=== PATIENT | female | born 1960 | race Caucasian/White ===

== ENCOUNTER → 2017-02-02 | Outpatient (CLI) | payer OTHER, SELFPAY ==
--- NOTE | 2017-02-02 15:05 | CR ---
EXAMINATION: Left wrist HISTORY: Pain COMPARISON: 03/26/2015 TECHNIQUE: 3 views FINDINGS/IMPRESSION: There is no acute osseous abnormality, dislocation, or fracture identified. The re is moderate positive ulnar variance. Subchondral cystic changes noted within the carpal bones mos t prominent within the hamate.
== END ==
LOC: MW.CHORTHO 07:37
PROVIDERS: ATTEND Physician Assistant
DX: M25.532 Pain in left wrist (principal)
CPT/HCPCS: 73110-26-LT; 73110-LT

== ENCOUNTER 2017-06-15 11:58 | Day surgery (SDC) | payer OTHER, SELFPAY ==
[~2017-06-15 11:58] MED LIST: Betamethasone Acetate/Betamethasone Sod Phosphate 30 MG/5 ML MDV ONE; Lidocaine 2% 5 ML SDV ONE; Ropivacaine 0.5% 5 MG/ML 30 ML SDV ONE
--- NOTE | 2017-06-15 21:47 | OR ---
SURGEON: Ketty Chávez D.O. DATE OF PROCEDURE: 06/15/2017 OR STAFF PRESENT: 1. Nazanin Christian. 2. Elsa Perkins. 3. Yahaira RT. WOUND CLASSIFICATION: I. PREOPERATIVE DIAGNOSES: 1. Chronic low back pain. 2. Lumbar degenerative disk disease. 3. Lumbar radiculopathy. 4. Spinal stenosis. POSTOPERATIVE DIAGNOSES: 1. Chronic low back pain. 2. Lumbar degenerative disk disease. 3. Lumbar radiculopathy. 4. Spinal stenosis. PROCEDURES PERFORMED: 1. Caudal epidural steroid injection. 2. Fluoroscopic guidance for needle placement. 3. Local with oral Valium for sedation. SCREENING QUESTIONS: The patient answered "no" to all of the following questions: 1. Are you allergic to latex? 2. Do you have a bleeding disorder? 3. Do you have any current local or systemic infections? 4. Are you taking any anti-inflammatories or blood thinners? 5. Do you have any joint replacements, heart valve replacements, or a pacemaker? DESCRIPTION OF PROCEDURE: The patient had the procedure thoroughly explained including all possible risks, benefits and alternatives. Consent was signed in my clinic indicating understanding and willingness to proceed. The patient presented to [facility] and was escorted to the dressing room to disrobe and change into a hospital gown. Preoperative vital signs were taken and stable. The patient reported that Valium was taken prior to the procedure. The patient was brought back to the procedure room and placed in the prone position on the procedure room table. A pillow was placed under the hips in order to flatten the lumbar lordosis. The back was prepped with ChloraPrep and sterilely draped. All personnel in the operating room were dressed in appropriate attire including surgical scrubs, head and shoe covers. This was to ensure sterility while in the treatment room. During the time fluoroscopy was in use, all personnel in the operating room wore lead mooney with thyroid collars. Sterile technique was used throughout the procedure. The patient was awake and conversant throughout the procedure. There was no evidence of infection at the site of needle insertion. Skeletal landmarks were identified under fluoroscopy for the caudal epidural. Skin was anesthetized with 2% lidocaine with a sterile 27-gauge 1.5 inch needle. Then a 20-gauge Tuohy epidural needle was placed in the epidural space with loss of resistance technique under fluoroscopic guidance. No heme, cerebrospinal fluid, or paresthesias were noted. Isovue-200 contrast dye was injected in 0.2 cubic centimeter increments and seen to outline the epidural space in both AP and lateral views. There was no intravascular flow pattern observed under live fluoroscopy. Then 12 milligrams of Celestone was slowly injected after negative aspiration. The patient tolerated the procedure well. Vital signs were stable during and after the procedure. The staff escorted the patient to the recovery area and the patient was released in stable condition after a brief stay in the recovery room monitored by the nurse. The patient was given both oral and written discharge and follow up instructions with recommendation to follow up given for 2-3 weeks. The patient voiced understanding including understanding of those signs and symptoms that would require emergency care. The patient knows how to contact the office if there are any additional problems or questions in the meantime. PREOPERATIVE PAIN: 7/10. POSTOPERATIVE PAIN: 0/10. PLAN: Followup in the Pain Clinic in one month. [place] / ROJELIO /[id number] MTDLinda
== END 2017-06-15 13:14 ==
LOC: MW.SDS 11:58
PROVIDERS: ATTEND Anesthesiology
PROC: 3E0S33Z Introduction of Anti-inflammatory into Epidural Space, Percutaneous Approach (ICD-10-PCS; principal; 2017-06-15)
DX: M51.16 Intervertebral disc disorders with radiculopathy, lumbar region (principal); G89.29 Other chronic pain; F32.9 Major depressive disorder, single episode, unspecified; I10 Essential (primary) hypertension; E03.9 Hypothyroidism, unspecified; E66.9 Obesity, unspecified; Z79.82 Long term (current) use of aspirin; Z90.89 Acquired absence of other organs; Z98.890 Other specified postprocedural states; Z87.891 Personal history of nicotine dependence
CPT/HCPCS: 62323; J0702; J2795

== ENCOUNTER 2017-09-24 23:58 | Emergency (ER) | payer OTHER ==
--- NOTE | 2017-09-25 00:20 | EDM.PDOC ---
ED HPI GENERAL MEDICAL PROBLEM - General Chief Complaint: Genitourinary Problem Stated Complaint: POSSIBLE BLADDER INFECTION Time Seen by Provider: 09/25/17 00:04 - History of Present Illness INITIAL COMMENTS - FREE TEXT/NARRATIVE: HISTORY AND PHYSICAL: History of present illness: The patient is a 57-year-old female was a history of hypertension hypothyroidism and chronic back pain for which she follows with Dr. Chávez and presents with frequency urgency some dysuria and some new hematuria in her urine that started today. Patient said she did not see blood in the urine until this evening and she says that she has pain more frequently with smaller amounts. She has her chronic back pain and says it is not radiating down to her legs she has no bowel or bladder disturbances other than the urinary complaints as above. She has no discrete flank pain but has some right lower back pain associated with the urinary issues. She has no fever chills chest pain or shortness of breath and no nausea or vomiting. She says she hasn't had much of an appetite and food makes her somewhat nauseated but she has an address that with her primary and that is not new today. She has no neurosensory changes in her lower extremities and says that the sensation in her buttocks and perianal area is intact. She's been having regular bowel movements. She has no recent trauma to her back or abdomen area and no history. Review of systems: As per history of present illness and below otherwise all systems reviewed and negative. Past medical history: As per history of present illness and as reviewed below otherwise noncontributory. Surgical history: As per history of present illness and as reviewed below otherwise noncontributory. Social history: No reported history of drug or alcohol abuse. Family history: As per history of present illness and as reviewed below otherwise noncontributory. Physical exam: Gen.: Well-developed well-nourished mildly overweight female who is nontoxic and moves easily in the ED without distress. HEENT: Atraumatic, normocephalic, negative for conjunctival pallor or scleral icterus, mucous membranes moist, throat clear, neck supple, nontender, trachea midline. Lungs: Clear to auscultation, breath sounds equal bilaterally, chest nontender. Heart: S1S2, regular rate and rhythm no overt murmurs Abdomen: Soft, nondistended, bowel sounds are hypoactive and there is some mild suprapubic tenderness on deep palpation without rebound or guarding. Negative for masses or hepatosplenomegaly. Negative for costovertebral tenderness. Pelvis: Stable nontender. Genitourinary: Deferred. Rectal: Deferred. Extremities: Atraumatic, negative for cords or calf pain. Neurovascular unremarkable. Neuro: Awake, alert, oriented. Cranial nerves II through XII unremarkable. Cerebellum unremarkable. Motor and sensory unremarkable throughout. Exam nonfocal. Diagnostics: UA urine culture bladder scan pre-and post void Therapeutics: Rocephin IM, Pyridium Please note bladder scan results indicating 245 mL of urine prevoid and 121 mL post void. Impression: UTI/cystitis Definitive disposition and diagnosis as appropriate pending reevaluation and review of above. back & lower abdomen Pain Score (Numeric/FACES): 5 - Related Data Allergies Allergy/AdvReac Type Severity Reaction Status Date / Time No Known Allergies Allergy Verified 09/25/17 00:04 Home Meds: Home Meds Aspirin 1 tab PO ASDIRECTED 09/25/17 [History] Levothyroxine 75 mcg PO ACBREAKFAST 09/25/17 [History] Metoprolol Tartrate 1 tab PO BID 09/25/17 [History] Past Medical History HEENT History: Reports: None Cardiovascular History: Reports: Hypertension Respiratory History: Reports: COPD Gastrointestinal History: Reports: None Genitourinary History: Reports: None PROFILER History: Reports: Musculoskeletal History: Reports: Osteoarthritis Neurological History: Reports: None Psychiatric History: Reports: Anxiety, Depression Endocrine/Metabolic History: Reports: Hypothyroidism Hematologic History: Reports: None Immunologic History: Reports: None Oncologic (Cancer) History: Reports: None Dermatologic History: Reports: None - Infectious Disease History Infectious Disease History: Reports: Chicken Pox - Past Surgical History HEENT Surgical History: Reports: Tonsillectomy Social & Family History - Family History Family Medical History: Noncontributory - Tobacco Use Smoking Status *Q: Former Smoker Years of Tobacco use: 40 Used Tobacco, but Quit: No Tobacco Use Comment: quit a year ago - Caffeine Use Caffeine Use: Reports: Soda - Alcohol Use Days Per Week of Alcohol Use: 0 - Recreational Drug Use Recreational Drug Use: No ED ROS GENERAL - Review of Systems Review Of Systems: ROS reveals no pertinent complaints other than HPI. ED EXAM, GENERAL - Physical Exam Exam: See Below (See dictation) Course - Vital Signs Last Recorded V/S: Last Vital Signs Temp 36.2 C 09/25/17 00:06 Pulse 70 09/25/17 00:06 Resp 18 09/25/17 00:06 BP 106/53 L 09/25/17 00:06 Pulse Ox 96 09/25/17 00:06 - Orders/Labs/Meds Orders: Active Orders 24 hr Category Date Time Status CULTURE URINE [RM] Stat Lab 09/25/17 00:29 Received Labs: Laboratory Tests 09/25/17 Range/Units 00:29 Urine Color BROWN Urine Appearance SLT CLOUDY Urine pH 6.5 (5.0-8.0) Ur Specific [place] >= 1.030 (1.001-1.035) Urine Protein >=300 (NEGATIVE) mg/dL Urine Glucose (UA) 100 H (NEGATIVE) mg/dL Urine Ketones TRACE H (NEGATIVE) mg/dL Urine Occult Blood LARGE H (NEGATIVE) Urine Nitrite POSITIVE H (NEGATIVE) Urine Bilirubin MODERATE H (NEGATIVE) Urine Ictotest NEGATIVE Urine Urobilinogen 1.0 (<2.0) EU/dL Ur Leukocyte Esterase MODERATE (NEGATIVE) Urine RBC TOO NUMBEROUS TO CT H (0-2/HPF) Urine WBC 20-30 (0-5/HPF) Ur Epithelial Cells OCCASIONAL (NONE-FEW) Urine Bacteria 1+ H (NEGATIVE) Meds: Medications Discontinued Medications Generic Name Dose Route Start Last Admin Trade Name Vega PRN Reason Stop Dose Admin Ceftriaxone Sodium 1,000 mg/ 4 mls @ 4 mls/sec 09/25/17 01:00 Lidocaine HCl IM 09/25/17 01:01 ONETIME ONE Phenazopyridine HCl 200 mg 09/25/17 01:00 Pyridium PO 09/25/17 01:01 ONETIME ONE Departure - Departure Time of Disposition: 01:02 Disposition: Home, Self-Care 01 Condition: Good Clinical Impression: UTI, Urinary tract infectious disease - Discharge Information Referrals: Juliana Kramer PELLET MACHINE OPERATOR [Primary Care Provider] - Forms: ED Department Discharge Additional Instructions: The following information is given to patients seen in the emergency department who are being discharged to home. This information is to outline your options for follow-up care. We provide all patients seen in our emergency department with a follow-up referral. The need for follow-up, as well as the timing and circumstances, are variable depending upon the specifics of your emergency department visit. If you don't have a primary care physician on staff, we will provide you with a referral. We always advise you to contact your personal physician following an emergency department visit to inform them of the circumstance of the visit and for follow-up with them and/or the need for any referrals to a consulting specialist. The emergency department will also refer you to a specialist when appropriate. This referral assures that you have the opportunity for followup care with a specialist. All of these measure are taken in an effort to provide you with optimal care, which includes your followup. Under all circumstances we always encourage you to contact your private physician who remains a resource for coordinating your care. When calling for followup care, please make the office aware that this follow-up is from your recent emergency room visit. If for any reason you are refused follow-up, please contact the [facility] emergency department at and ask to speak to the emergency department charge nurse. [facility] Primary care- [place] [address] Please push hydration and take medications as prescribed. Please return to ER as needed and as discussed. Please contact your pain doctor in the clinic, Dr. Chávez, on Wednesday morning to inform her of jane's events as she may or may not want to change her surgery next week. He will be contacted if the urine culture reveals and need for change in antibiotics. Please also call your provider in the clinic for reevaluation and further care of this urine problem next week. - My Orders Last 24 Hours: My Active Orders 09/25/17 00:29 CULTURE URINE [RM] Stat - Assessment/Plan Last 24 Hours: My Active Orders 09/25/17 00:29 CULTURE URINE [RM] Stat
[2017-09-25] MEDS ORDERED: Phenazopyridine 200 MG Tab PO ONE (01:00)
[2017-09-25] MEDS ORDERED: cefTRIAXone 1,000 MG in Lidocaine 1% 4 ML IM ONE (01:00)
[2017-09-25 01:28] VITALS: BP 119/79
== END 2017-09-25 01:31 | disposition home or self-care (01) ==
LOC: MW.ED 23:58
DX: N39.0 Urinary tract infection, site not specified (principal); I10 Essential (primary) hypertension; Z79.82 Long term (current) use of aspirin; Z79.899 Other long term (current) drug therapy; Z87.891 Personal history of nicotine dependence
CPT/HCPCS: 81001; 87086; 96372; 99284; A9270; J0696; 87088; 87186; 99282

== ENCOUNTER 2017-12-23 11:41 | Day surgery (SDC) | payer OTHER ==
[2017-12-23] MEDS ORDERED: Ropivacaine 0.5% 5 MG/ML 30 ML SDV ONE (12:04)
[2017-12-23] MEDS ORDERED: Lidocaine 2% 5 ML SDV ONE (12:04)
[2017-12-23] MEDS ORDERED: Iopamidol 408 MG/ML 50 ML SDV ONE (12:04)
[2017-12-23] MEDS ORDERED: Betamethasone Acetate/Betamethasone Sod Phosphate 30 MG/5 ML MDV ONE (12:04)
--- NOTE | 2017-12-23 16:14 | OR ---
SURGEON: Ketty Chávez D.O. DATE OF PROCEDURE: 12/23/2017 OR STAFF PRESENT: 1. Loraine Shen RN. 2. Mc Perkins RN. 3. RT Agnieszka. WOUND CLASSIFICATION: I. PREOPERATIVE DIAGNOSES: 1. Lumbar degenerative disk disease. 2. Lumbar spinal stenosis. 3. Chronic low back pain. 4. Increased BMI. POSTOPERATIVE DIAGNOSES: 1. Lumbar degenerative disk disease. 2. Lumbar spinal stenosis. 3. Chronic low back pain. 4. Increased BMI. PROCEDURE PERFORMED: 1. Caudal epidural steroid injection. 2. Fluoroscopic guidance for needle placement. 3. Local with oral Valium for sedation. SCREENING QUESTIONS: The patient answered "no" to all of the following questions: 1. Are you allergic to latex? 2. Do you have a bleeding disorder? 3. Do you have any current local or systemic infections? 4. Are you taking any anti-inflammatories or blood thinners? 5. Do you have any joint replacements, heart valve replacements, or a pacemaker? DESCRIPTION OF PROCEDURE: The patient had the procedure thoroughly explained including all possible risks, benefits and alternatives. Consent was signed in my clinic indicating understanding and willingness to proceed. The patient presented to [facility] [place] and was escorted to the dressing room to disrobe and change into a hospital gown. Preoperative vital signs were taken and stable. The patient reported that Valium was taken prior to the procedure. The patient was brought back to the procedure room and placed in the prone position on the procedure room table. A pillow was placed under the hips in order to flatten the lumbar lordosis. The back was prepped with ChloraPrep and sterilely draped. All personnel in the operating room were dressed in appropriate attire including surgical scrubs, head and shoe covers. This was to ensure sterility while in the treatment room. During the time fluoroscopy was in use, all personnel in the operating room wore lead mooney with thyroid collars. Sterile technique was used throughout the procedure. The patient was awake and conversant throughout the procedure. There was no evidence of infection at the site of needle insertion. Skeletal landmarks were identified under fluoroscopy for the caudal epidural. Skin was anesthetized with 2% lidocaine with a sterile 27-gauge 1.5 inch needle. Then a 20-gauge Tuohy epidural needle was placed in the epidural space with loss of resistance technique under fluoroscopic guidance. No heme, cerebrospinal fluid, or paresthesias were noted. Isovue-200 contrast dye was injected in 0.2 cubic centimeter increments and seen to outline the epidural space in both AP and lateral views. There was no intravascular flow pattern observed under live fluoroscopy. Then 12 milligrams of Celestone was slowly injected after negative aspiration and then local 3cc 0.5% ropivicaine. The patient tolerated the procedure well. Vital signs were stable during and after the procedure. The staff escorted the patient to the recovery area and the patient was released in stable condition after a brief stay in the recovery room monitored by the nurse. The patient was given both oral and written discharge and follow up instructions with recommendation to follow up given for 2-3 weeks. The patient voiced understanding including understanding of those signs and symptoms that would require emergency care. The patient knows how to contact the office if there are any additional problems or questions in the meantime. PREOPERATIVE PAIN: 8/10. POSTOPERATIVE PAIN: 2/10. FOLLOWUP: Follow up in Pain Clinic in 3 weeks. [place] / ROJELIO /[id number] [place]
== END 2017-12-23 14:25 | disposition home or self-care (01) ==
LOC: MW.SDS 11:41
PROVIDERS: ATTEND Anesthesiology
DX: G89.4 Chronic pain syndrome (principal); M51.36 Other intervertebral disc degeneration, lumbar region; M48.061 Spinal stenosis, lumbar region without neurogenic claudication; L57.0 Actinic keratosis; R30.0 Dysuria; J44.9 Chronic obstructive pulmonary disease, unspecified; M65.4 Radial styloid tenosynovitis [de Quervain]; F41.8 Other specified anxiety disorders; R73.09 Other abnormal glucose; I10 Essential (primary) hypertension; E03.9 Hypothyroidism, unspecified; M54.17 Radiculopathy, lumbosacral region; E66.9 Obesity, unspecified; R73.03 Prediabetes; M17.0 Bilateral primary osteoarthritis of knee; M46.1 Sacroiliitis, not elsewhere classified; I78.1 Nevus, non-neoplastic; M47.897 Other spondylosis, lumbosacral region; Z79.891 Long term (current) use of opiate analgesic; Z87.891 Personal history of nicotine dependence; Z79.82 Long term (current) use of aspirin; Z79.899 Other long term (current) drug therapy; Z68.42 Body mass index [BMI] 45.0-49.9, adult
CPT/HCPCS: 62323; J0702; J2795; Q9966

== ENCOUNTER 2017-12-29 06:58 | Emergency (ER) | payer OTHER ==
--- NOTE | 2017-12-29 07:17 | EDM.PDOC ---
ED HPI GENERAL MEDICAL PROBLEM - General Chief Complaint: ENT Problem Stated Complaint: SORE THROAT Time Seen by Provider: 12/29/17 07:17 Source of Information: Reports: Patient - History of Present Illness INITIAL COMMENTS - FREE TEXT/NARRATIVE: HISTORY AND PHYSICAL: History of present illness: Patient with history of COPD presents with cough sore throat as well as left flank pain which has all developed over the last 24 hours. Patient does have a coarse nonproductive cough during examination she also has end expiratory wheeze she is supposed to be taking Symbicort which she does have at home but she does not use this medication. She is no longer smoking however she has developed sore throat over the last 24 hours and has a secondary complaint of left flank discomfort she rates one out of 10 No fever nausea vomiting chills sweats no chest pain shortness breath headache dizziness or palpitation no bowel or urine symptoms ] Review of systems: As per history of present illness and below otherwise all systems reviewed and negative. Past medical history: As per history of present illness and as reviewed below otherwise noncontributory. Surgical history: As per history of present illness and as reviewed below otherwise noncontributory. Social history: No reported history of drug or alcohol abuse. Family history: As per history of present illness and as reviewed below otherwise noncontributory. Physical exam: HEENT: Atraumatic, normocephalic, pupils reactive, negative for conjunctival pallor or scleral icterus, mucous membranes moist, throat clear, neck supple, nontender, trachea midline. Lungs: Clear to auscultation, breath sounds equal bilaterally, chest nontender. Heart: S1S2, regular, negative for clicks, rubs, or JVD. Abdomen: Soft, nondistended, nontender. Negative for masses or hepatosplenomegaly. Negative for costovertebral tenderness. Pelvis: Stable nontender. Genitourinary: Deferred. Rectal: Deferred. Extremities: Atraumatic, negative for cords or calf pain. Neurovascular unremarkable. Neuro: Awake, alert, oriented. Cranial nerves II through XII unremarkable. Cerebellum unremarkable. Motor and sensory unremarkable throughout. Exam nonfocal. Diagnostics: [Rapid strep] Influenza Chest 2 views [employer]: [Patient does not tolerate antibiotics well, she states she has had good luck with amoxicillin in the past Amoxicillin 875 by mouth twice a day #20 no refill Diflucan 150 mg by mouth every other day #3no refill] Medrol Dosepak Impression: [Pharyngitis/bronchitis Slight infiltrate on chest x-ray will follow radiology Leukocyte esterase positive culture pending Definitive disposition and diagnosis as appropriate pending reevaluation and review of above. left flank Pain Score (Numeric/FACES): 8 - Related Data Allergies Allergy/AdvReac Type Severity Reaction Status Date / Time No Known Allergies Allergy Verified 12/29/17 07:55 Home Meds: Home Meds Aspirin 1 tab PO ASDIRECTED 09/25/17 [History] Levothyroxine 80 mcg PO ACBREAKFAST 09/25/17 [History] Metoprolol Tartrate 50 mg PO BID 09/25/17 [History] oxyCODONE 10 mg PO DAILY 12/29/17 [History] Past Medical History HEENT History: Reports: None Cardiovascular History: Reports: Hypertension Respiratory History: Reports: COPD Gastrointestinal History: Reports: None Genitourinary History: Reports: None 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: Musculoskeletal History: Reports: Osteoarthritis Neurological History: Reports: None Psychiatric History: Reports: Anxiety, Depression Endocrine/Metabolic History: Reports: Hypothyroidism Hematologic History: Reports: None Immunologic History: Reports: None Oncologic (Cancer) History: Reports: None Dermatologic History: Reports: None - Infectious Disease History Infectious Disease History: Reports: Chicken Pox - Past Surgical History HEENT Surgical History: Reports: Tonsillectomy Social & Family History - Family History Family Medical History: Noncontributory - Tobacco Use Smoking Status *Q: Former Smoker Years of Tobacco use: 40 Used Tobacco, but Quit: No - Caffeine Use Caffeine Use: Reports: Soda - Alcohol Use Days Per Week of Alcohol Use: 0 - Recreational Drug Use Recreational Drug Use: No ED ROS GENERAL - Review of Systems Review Of Systems: ROS reveals no pertinent complaints other than HPI. ED EXAM, GENERAL - Physical Exam Exam: See Below Course - Vital Signs Last Recorded V/S: Last Vital Signs Temp 95.3 F L 12/29/17 07:26 Pulse 91 12/29/17 07:26 Resp 18 12/29/17 07:26 BP 121/67 12/29/17 07:26 Pulse Ox 91 L 12/29/17 07:26 - Orders/Labs/Meds Orders: Active Orders 24 hr Category Date Time Status RT Aerosol Therapy [RC] ASDIRECTED Care 12/29/17 07:28 Active Chest 1V Frontal [CR] Stat Exams 12/29/17 07:28 Taken CULTURE STREP A CONFIRMATION [RM] Stat Lab 12/29/17 07:32 Results CULTURE URINE [RM] Stat Lab 12/29/17 07:32 Received STREP SCRN A RAPID W CULT CONF [RM] Stat Lab 12/29/17 07:32 Results Labs: Laboratory Tests 12/29/17 Range/Units 07:32 Urine Color YELLOW Urine Appearance CLEAR Urine pH 6.0 (5.0-8.0) Ur Specific [place] 1.015 (1.001-1.035) Urine Protein NEGATIVE (NEGATIVE) mg/dL Urine Glucose (UA) NEGATIVE (NEGATIVE) mg/dL Urine Ketones NEGATIVE (NEGATIVE) mg/dL Urine Occult Blood NEGATIVE (NEGATIVE) Urine Nitrite NEGATIVE (NEGATIVE) Urine Bilirubin NEGATIVE (NEGATIVE) Urine Urobilinogen 0.2 (<2.0) EU/dL Ur Leukocyte Esterase TRACE (NEGATIVE) Urine RBC 0-2 (0-2/HPF) Urine WBC 5-10 (0-5/HPF) Ur Epithelial Cells MODERATE (NONE-FEW) Urine Bacteria FEW (NEGATIVE) Meds: Medications Discontinued Medications Generic Name Dose Route Start Last Admin Trade Name Freq PRN Reason Stop Dose Admin Albuterol/Ipratropium 3 ml 12/29/17 07:28 12/29/17 07:44 Duoneb 3.0-0.5 Mg/3 Ml NEB 12/29/17 07:29 3 ml ONETIME ONE Administration Departure - Departure Time of Disposition: 08:19 Disposition: Home, Self-Care 01 Condition: Good Clinical Impression: Pharyngitis, Bronchitis, UTI, Urinary tract infectious disease - Discharge Information Referrals: Juliana Kramer NP [Primary Care Provider] - Forms: ED Department Discharge Additional Instructions: Medications as prescribed Strongly advised to use your Symbicort as directed at home Return if symptoms persist or worsen Follow-up with primary care in 2 weeks sooner as needed The following information is given to patients seen in the emergency department who are being discharged to home. This information is to outline your options for follow-up care. We provide all patients seen in our emergency department with a follow-up referral. The need for follow-up, as well as the timing and circumstances, are variable depending upon the specifics of your emergency department visit. If you don't have a primary care physician on staff, we will provide you with a referral. We always advise you to contact your personal physician following an emergency department visit to inform them of the circumstance of the visit and for follow-up with them and/or the need for any referrals to a consulting specialist. The emergency department will also refer you to a specialist when appropriate. This referral assures that you have the opportunity for follow-up care with a specialist. All of these measure are taken in an effort to provide you with optimal care, which includes your follow-up. Under all circumstances we always encourage you to contact your private physician who remains a resource for coordinating your care. When calling for follow-up care, please make the office aware that this follow-up is from your recent emergency room visit. If for any reason you are refused follow-up, please contact the [facility] emergency department at and asked to speak to the emergency department charge nurse. - My Orders Last 24 Hours: My Active Orders 12/29/17 07:28 RT Aerosol Therapy [RC] ASDIRECTED Chest 1V Frontal [CR] Stat 12/29/17 07:32 CULTURE STREP A CONFIRMATION [RM] Stat CULTURE URINE [RM] Stat STREP SCRN A RAPID W CULT CONF [RM] Stat - Assessment/Plan Last 24 Hours: My Active Orders 12/29/17 07:28 RT Aerosol Therapy [RC] ASDIRECTED Chest 1V Frontal [CR] Stat 18 07:32 CULTURE STREP A CONFIRMATION [RM] Stat CULTURE URINE [RM] Stat STREP SCRN A RAPID W CULT CONF [RM] Stat
[2017-12-29] MEDS ORDERED: Albuterol/Ipratropium 3.0-0.5 MG/3 ML Neb Soln NEB ONE (07:28)
--- NOTE | 2017-12-29 11:13 | CR ---
EXAM DATE: 12/29/17 PATIENT'S AGE: 57 Patient: MEG QUINTERO Facility: [place], [place] Site . Site : 1960 Study: XRay Chest [id number]/14/2018 7:58:42 AM Ordering Physician: Jacki Thomas Final Report: INDICATION: Pain. Shortness of breath. TECHNIQUE: PA chest. COMPARISON: None. FINDINGS: The cardiac, mediastinal and hilar contours are within normal limits. Normal pulmonary vasculature. There is atelectasis versus scarring see in the mid left lung. No airspace opacities to suggest pneumonia. No appreciable pleural fluid or pneumothorax. IMPRESSIONS: Minimal left perihilar atelectasis versus scarring. No other significant findings. Dictated by Zach Spears MD @ 12/29/2017 8:19:45 AM Dictated by: Zach Spears MD @ 12/29/2017 08:19:52 (Electronic Signature) Report Signed by Proxy. PEYTON
[2017-12-29 14:22] VITALS: BP 119/75
== END 2017-12-29 08:30 | disposition home or self-care (01) ==
LOC: MW.ED 06:58
DX: J40 Bronchitis, not specified as acute or chronic (principal); J02.9 Acute pharyngitis, unspecified; N39.0 Urinary tract infection, site not specified; J44.9 Chronic obstructive pulmonary disease, unspecified; Z79.899 Other long term (current) drug therapy; Z87.891 Personal history of nicotine dependence
CPT/HCPCS: 71045; 71045-26; 81001; 87081; 87086; 87804; 87880; 94640; 99283; 99284-25

== ENCOUNTER 2018-07-10 17:40 | Emergency (ER) | payer SELFPAY ==
--- NOTE | 2018-07-10 18:00 | EDM.PDOC ---
ED HPI GENERAL MEDICAL PROBLEM - General Chief Complaint: Back Pain or Injury Stated Complaint: PT HAS LOWER BODY PAIN Time Seen by Provider: 07/10/18 17:47 - History of Present Illness INITIAL COMMENTS - FREE TEXT/NARRATIVE: HISTORY AND PHYSICAL: History of present illness: Patient's a 57-year-old white female with history of chronic back pain seems a private medical doctor and a pain specialist who comes in now with lower back pain with radiation to her right hip and anterior thigh she denies any trauma and she denies numbness weakness incontinence or retention of bowel or bladder. Review of systems: As per history of present illness and below otherwise all systems reviewed and negative. Past medical history: As per history of present illness and as reviewed below otherwise noncontributory. Surgical history: As per history of present illness and as reviewed below otherwise noncontributory. Social history: No reported history of drug or alcohol abuse. Family history: As per history of present illness and as reviewed below otherwise noncontributory. Physical exam: HEENT: Atraumatic, normocephalic, pupils reactive, negative for conjunctival pallor or scleral icterus, mucous membranes moist, throat clear, neck supple, nontender, trachea midline. Lungs: Clear to auscultation, breath sounds equal bilaterally, chest nontender. Heart: S1S2, regular, negative for clicks, rubs, or JVD. Abdomen: Soft, nondistended, nontender. Negative for masses or hepatosplenomegaly. Negative for costovertebral tenderness. Pelvis: Stable nontender. Genitourinary: Deferred. Rectal: Deferred. Extremities: Atraumatic, negative for cords or calf pain. Neurovascular unremarkable. Neuro: Awake, alert, oriented. Cranial nerves II through XII unremarkable. Cerebellum unremarkable. . Exam nonfocal. Back: Patient is no vertebral body or point tenderness no significant spasm motor and sensory are limited but grossly unremarkable Diagnostics: CT lumbar spine Therapeutics: None Impression: #1 chronic pain syndrome Definitive disposition and diagnosis as appropriate pending reevaluation and review of above. Right Lower Back Pain Score (Numeric/FACES): 10 - Related Data Allergies Allergy/AdvReac Type Severity Reaction Status Date / Time No Known Allergies Allergy Verified 12/29/17 07:55 Home Meds: Home Meds Aspirin 1 tab PO ASDIRECTED 09/25/17 [History] Levothyroxine 80 mcg PO ACBREAKFAST 09/25/17 [History] Metoprolol Tartrate 50 mg PO BID 09/25/17 [History] oxyCODONE 10 mg PO BID 12/29/17 [History] Past Medical History HEENT History: Reports: None Cardiovascular History: Reports: Hypertension Respiratory History: Reports: COPD Gastrointestinal History: Reports: None Genitourinary History: Reports: None 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: Musculoskeletal History: Reports: Osteoarthritis Neurological History: Reports: None Psychiatric History: Reports: Anxiety, Depression Endocrine/Metabolic History: Reports: Hypothyroidism Hematologic History: Reports: None Immunologic History: Reports: None Oncologic (Cancer) History: Reports: None Dermatologic History: Reports: None - Infectious Disease History Infectious Disease History: Reports: Chicken Pox - Past Surgical History HEENT Surgical History: Reports: Tonsillectomy Social & Family History - Family History Family Medical History: Noncontributory - Caffeine Use Caffeine Use: Reports: Soda ED ROS GENERAL - Review of Systems Review Of Systems: ROS reveals no pertinent complaints other than HPI. ED EXAM, GENERAL - Physical Exam Exam: See Below (See dictation) Course - Vital Signs Last Recorded V/S: Last Vital Signs Temp 36.2 C 07/10/18 17:49 Pulse 54 L 07/10/18 17:49 Resp 20 07/10/18 17:49 BP 114/61 07/10/18 17:49 Pulse Ox 97 07/10/18 17:49 - Orders/Labs/Meds Orders: Active Orders 24 hr Category Date Time Status Lumbar Spine wo Cont [CT] Stat Exams 07/10/18 17:58 Taken Departure - Departure Time of Disposition: 18:48 Disposition: Home, Self-Care 01 Condition: Good Clinical Impression: Chronic pain syndrome, Degenerative disc disease - Discharge Information *PRESCRIPTION DRUG MONITORING PROGRAM REVIEWED*: Not Applicable *COPY OF PRESCRIPTION DRUG MONITORING REPORT IN PATIENT KATHIE: Not Applicable Referrals: PCP,None [Primary Care Provider] - Forms: ED Department Discharge Additional Instructions: The following information is given to patients seen in the emergency department who are being discharged to home. This information is to outline your options for follow-up care. We provide all patients seen in our emergency department with a follow-up referral. The need for follow-up, as well as the timing and circumstances, are variable depending upon the specifics of your emergency department visit. If you don't have a primary care physician on staff, we will provide you with a referral. We always advise you to contact your personal physician following an emergency department visit to inform them of the circumstance of the visit and for follow-up with them and/or the need for any referrals to a consulting specialist. The emergency department will also refer you to a specialist when appropriate. This referral assures that you have the opportunity for followup care with a specialist. All of these measure are taken in an effort to provide you with optimal care, which includes your followup. Under all circumstances we always encourage you to contact your private physician who remains a resource for coordinating your care. When calling for followup care, please make the office aware that this follow-up is from your recent emergency room visit. If for any reason you are refused follow-up, please contact the [facility] emergency department at and asked to speak to the emergency department charge nurse. Follow-up primary medical doctor and pain specialist as discussed return as needed as discussed - My Orders Last 24 Hours: My Active Orders 07/10/18 17:58 Lumbar Spine wo Cont [CT] Stat - Assessment/Plan Last 24 Hours: My Active Orders 07/10/18 17:58 Lumbar Spine wo Cont [CT] Stat
[2018-07-10] MEDS ORDERED: Ketorolac 60 MG/2 ML SDV IM ONE (19:24)
[2018-07-10 19:48] VITALS: BP 122/68
--- NOTE | 2018-07-11 16:14 | CT ---
EXAM DATE: 07/10/18 PATIENT'S AGE: 57 Patient: MEG QUINTERO Facility: [place], [place] Site . Site : 1960 Study: CT Spine Lumbar [id number]/23/2018 6:28:11 PM Ordering Physician: Maggy Gandhi Final Report: Indication: Low back pain radiating down the legs for 3 days. Technique: Multiple contiguous axial images were obtained through the lumbar spine. Sagittal and coronal reformatted images were performed. Please note that all CT scans at this facility use dose modulation, iterative reconstruction, and/or weight-based dosing when appropriate to reduce radiation dose to as low as reasonably achievable. Comparison: None Findings: The alignment of the lumbar spine is within normal limits. The vertebral body heights are well maintained. Vacuum disc phenomenon is identified at L5-S1. Intervertebral disc space narrowing is identified at L5-S1. Vacuum disc phenomenon is identified within both the right and left SI joint as well as the left L4-L5 and L5-S1 facet joints. At L4-L5, mild central canal stenosis appears to be present due to facet joint arthropathy and ligamentum flavum redundancy. There is possible compression of the exiting nerve roots at this level. At L5-S1, mild to moderate central canal stenosis is identified due to ligamentum flavum hypertrophy and a small posterior disc bulge. Facet joint arthropathy does appear to cause nerve root compression bilaterally. Impression: Degenerative change particularly in the lower lumbar spine. This patient would benefit from an MRI for further characterization and analysis on a non emergent basis. No acute fracture identified. Please note that all CT scans at this facility use dose modulation, iterative reconstruction, and/or weight-based dosing when appropriate to reduce radiation dose to as low as reasonably achievable. Dictated by Gloria Donald MD @ Jul 10 2018 6:50PM (Electronic Signature) Report Signed by Proxy. PEYTON
== END 2018-07-10 19:45 | disposition home or self-care (01) ==
LOC: MW.ED 17:40
DX: M51.36 Other intervertebral disc degeneration, lumbar region (principal); G89.4 Chronic pain syndrome; I10 Essential (primary) hypertension
CPT/HCPCS: 72131; 96372; 99284; J1885

== ENCOUNTER 2019-04-27 10:56 | Day surgery (SDC) | payer OTHER ==
[2019-04-27] MEDS ORDERED: Ropivacaine 0.5% 5 MG/ML 30 ML SDV ONE (11:37)
[2019-04-27] MEDS ORDERED: Lidocaine 2% 5 ML SDV ONE (11:37)
[2019-04-27] MEDS ORDERED: Betamethasone Acetate/Betamethasone Sod Phosphate 30 MG/5 ML MDV ONE (11:37)
[2019-04-27] MEDS ORDERED: Iopamidol 200-M 10 ML vial ITHECAL ONE (11:38)
--- NOTE | 2019-04-27 21:05 | OR ---
SURGEON: Ketty Chávez D.O. DATE OF PROCEDURE: 04/27/2019 PRIMARY SURGEON: Ketty Chávez D.O. ASSISTANTS: OR staff present are RT Justyn; Ta Burton RN; and Bear Winter RN. WOUND CLASS: I. PREOPERATIVE DIAGNOSES: 1. Lumbar degenerative disk disease. 2. Lumbar spondylosis. 3. Lumbar transitional vertebrae, L5-S1. 4. Lumbar sacralization. 5. Chronic low back pain. POSTOPERATIVE DIAGNOSES: 1. Lumbar degenerative disk disease. 2. Lumbar spondylosis. 3. Lumbar transitional vertebrae, L5-S1. 4. Lumbar sacralization. 5. Chronic low back pain. PROCEDURES PERFORMED: 1. Caudal epidural steroid injection. 2. Fluoroscopic guidance for needle placement. 3. Local with oral Valium for sedation. PREOPERATIVE PAIN: 10/10. POSTOPERATIVE PAIN: 4/10. FOLLOWUP: In the Pain Clinic in 1 month. SCREENING QUESTIONS: The patient answered "no" to all of the following questions: 1. Are you allergic to latex? 2. Do you have a bleeding disorder? 3. Do you have any current local or systemic infections? 4. Are you taking any anti-inflammatories or blood thinners? 5. Do you have any joint replacements, heart valve replacements, or a pacemaker? DESCRIPTION OF PROCEDURE: The patient had the procedure thoroughly explained including all possible risks, benefits and alternatives. Consent was signed in my clinic indicating understanding and willingness to proceed. The patient presented to [facility] and was escorted to the dressing room to disrobe and change into a hospital gown. Preoperative vital signs were taken and stable. The patient reported that Valium was taken prior to the procedure. The patient was brought back to the procedure room and placed in the prone position on the procedure room table. A pillow was placed under the hips in order to flatten the lumbar lordosis. The back was prepped with ChloraPrep and sterilely draped. All personnel in the operating room were dressed in appropriate attire including surgical scrubs, head and shoe covers. This was to ensure sterility while in the treatment room. During the time fluoroscopy was in use, all personnel in the operating room wore lead mooney with thyroid collars. Sterile technique was used throughout the procedure. The patient was awake and conversant throughout the procedure. There was no evidence of infection at the site of needle insertion. Skeletal landmarks were identified under fluoroscopy for the caudal epidural. Skin was anesthetized with 2% lidocaine with a sterile 27-gauge 1.5 inch needle. Then a 20-gauge Tuohy epidural needle was placed in the epidural space with loss of resistance technique under fluoroscopic guidance. No heme, cerebrospinal fluid, or paresthesias were noted. Isovue-200 contrast dye was injected in 0.2 cubic centimeter increments and seen to outline the epidural space in both AP and lateral views. There was no intravascular flow pattern observed under live fluoroscopy. Then 12 milligrams of Celestone was slowly injected after negative aspiration. The patient tolerated the procedure well. Vital signs were stable during and after the procedure. The staff escorted the patient to the recovery area and the patient was released in stable condition after a brief stay in the recovery room monitored by the nurse. The patient was given both oral and written discharge and follow up instructions with recommendation to follow up given for 2-3 weeks. The patient voiced understanding including understanding of those signs and symptoms that would require emergency care. The patient knows how to contact the office if there are any additional problems or questions in the meantime. [place] / ROJELIO /[id number] PEYTON
== END 2019-04-27 15:45 ==
LOC: MW.SDS 10:56
PROVIDERS: ATTEND Anesthesiology
DX: M51.36 Other intervertebral disc degeneration, lumbar region (principal); M47.896 Other spondylosis, lumbar region; Q76.49 Other congenital malformations of spine, not associated with scoliosis; M47.27 Other spondylosis with radiculopathy, lumbosacral region; M48.07 Spinal stenosis, lumbosacral region; G89.29 Other chronic pain; J44.9 Chronic obstructive pulmonary disease, unspecified; F41.8 Other specified anxiety disorders; I10 Essential (primary) hypertension; E03.9 Hypothyroidism, unspecified; E66.01 Morbid (severe) obesity due to excess calories; Z79.82 Long term (current) use of aspirin; Z79.899 Other long term (current) drug therapy; Z87.891 Personal history of nicotine dependence; Z68.41 Body mass index [BMI] 40.0-44.9, adult
CPT/HCPCS: 62323; J0702; J2795; Q9966; J2001

== ENCOUNTER 2019-06-15 11:34 | Day surgery (SDC) | payer OTHER ==
[~2019-06-15 11:34] MED LIST changes: +Betamethasone Acetate/Betamethasone Sod Phosphate 30 MG/5 ML MDV EPIDUR ONE; -Betamethasone Acetate/Betamethasone Sod Phosphate 30 MG/5 ML MDV ONE; +Iopamidol 200-M 10 ML vial ITHECAL ONE; +Lidocaine 2% 5 ML SDV INJECT ONE; -Lidocaine 2% 5 ML SDV ONE; +Ropivacaine 0.5% 5 MG/ML 30 ML SDV INJECT ONE; -Ropivacaine 0.5% 5 MG/ML 30 ML SDV ONE
--- NOTE | 2019-06-15 21:19 | OR ---
SURGEON: Ketty Chávez D.O. DATE OF PROCEDURE: 06/15/2019 PRIMARY SURGEON: Ketty Chávez D.O. ASSISTANTS: OR staff present: 1. Pancho Rojas RT. 2. Bear Christian RN. 3. Loraine Wu RN. PREOPERATIVE DIAGNOSES: 1. Lumbar degenerative disk disease. 2. Lumbar facet arthropathy. 3. Lumbar spinal stenosis. 4. Chronic low back pain. POSTOPERATIVE DIAGNOSES: 1. Lumbar degenerative disk disease. 2. Lumbar facet arthropathy. 3. Lumbar spinal stenosis. 4. Chronic low back pain. PROCEDURES PERFORMED: 1. Bilateral L2, L3, L4, L5 diagnostic and therapeutic medial branch blocks. 2. Fluoroscopic guidance for needle placement. 3. Local with oral Valium for sedation. PREOPERATIVE PAIN: 07/27. POSTOPERATIVE PAIN: 1-11/27. FOLLOWUP: In the Pain Clinic in 3 weeks. SCREENING QUESTIONS: The patient answered "No" to all the following questions: 1. Are you allergic to iodine, Betadine or latex? 2. Do you have a bleeding disorder? 3. Are you on anti-inflammatories or blood thinners? 4. Do you have any current local or systemic infections? MEDICAL NECESSITY: This is a patient with chronic low back pain who comes in for the above diagnostic procedure. This procedure is being performed in accordance with national guidelines written by the [employer]; please see medical necessity note in chart. DESCRIPTION OF PROCEDURE: The patient had the procedure thoroughly explained including risks, benefits and alternatives. Consent was signed in my clinic indicating understanding and willingness to proceed. The patient presented to [facility] and was escorted to the dressing room to disrobe and change into a hospital gown. Preoperative history and screening were performed by my nurse. Vital signs were taken and stable. The patient reported that Valium 10 milligrams was taken prior to the procedure. The patient was brought back to the procedure room and placed in the prone position on the procedure room table. A pillow was placed under the abdomen in order to flatten the lumbar lordosis. The back was prepped with ChloraPrep and sterilely draped. All personnel in the procedure room were dressed in appropriate attire including surgical scrubs, head and shoe covers. This was to ensure sterility while in the treatment room. During the time fluoroscopy was in use all personnel in the operating room wore lead mooney with thyroid collars. Sterile technique was used during the procedure. Then the fluoroscope was positioned to provide a right oblique view for the right L2,L3, and L4 medial branch blocks. This was begun by anesthetizing the skin and soft tissues. The fluoroscope was positioned and a sterile 22-gauge 3.5 inch needle was placed at the junction of the transverse process in the superior articular process of the L3, L4 and L5 vertebral bodies respectively. Precise needle placement was confirmed by fluoroscopy. Then 0.2 cubic centimeters of IsoVue-200 contrast dye was injected through microbore tubing under live fluoroscopy and showed no intravascular flow pattern and adequate flow over the target medial branch at each site. After negative aspiration, 1.0 cubic centimeters of celestone and 0.5% Ropivacaine was injected without complications. The fluoroscope was then positioned to provide a right L5 dorsal ramus block. This was begun by anesthetizing the skin and soft tissues over the right sacral sulcus. Then using fluoroscopic guidance, a sterile 22-gauge 3.5 inch spinal needle was positioned at the right sacral ala. Precise needle placement was confirmed by fluoroscopy in AP and oblique views, and 0.2 cubic centimeters of IsoVue-200 contrast dye was injected through microbore tubing under live fluoroscopy and showed no intravascular flow pattern and adequate flow over the target nerves. After negative aspiration, 0.5 cubic centimeters of 0.5% Ropivacaine was injected. No complications were noted. The fluoroscope was positioned then to provide a left L2, L3, and L4 medial branch blocks. The skin was anesthetized. Then a 22-gauge 3.5 inch spinal needle was positioned at the junction of the transverse process in the superior articular process of the L3, L4 andL5 vertebral body on the left . Precise needle placement was confirmed by fluoroscopy and with 0.2 cubic centimeters of IsoVue-200 contrast dye injected through microbore tubing showing no intravascular flow pattern and adequate flow over the target medial branch respectively. Then 1.0 cubic centimeters of celestone and 0.5% Ropivacaine was injected after negative aspiration without complications. Then the fluoroscope was positioned for the left L5 dorsal ramus block. This was begun by anesthetizing the skin and soft tissues. Then with fluoroscopic guidance a sterile 22-gauge 3.5 inch spinal needle was positioned at the left sacral ala. Precise needle placement was confirmed with 0.2 cubic centimeters of IsoVue-200 contrast dye injected through microbore tubing under live fluoroscopy showing no intravascular flow pattern and adequate flow over the target L5 nerve. Then 1.0 cubic centimeters of celestone and 0.5% Ropivacaine was injected after negative aspiration without complications. The procedure was well tolerated and vital signs were stable during and after the procedure. The staff escorted the patient to the recovery area. The patient was given both oral and written discharge and followup instructions. The patient will follow up with a pain diary which will be evaluated over this evening doing things that would normally cause pain. We will evaluate the efficacy of the diagnostic lumbar medial branch blocks as the patient will follow up in the clinic the next day. The patient was given both oral and written discharge and followup instructions. The patient voiced understanding including understanding of those signs and symptoms that would require emergency care and knows how to contact the office if there are any questions or concerns in the meantime. [place]IN / ROJELIO /[id number] PEYTON
== END 2019-06-15 13:30 | disposition home or self-care (01) ==
LOC: MW.SDS 11:34
PROVIDERS: ATTEND Anesthesiology
DX: G89.29 Other chronic pain (principal); M54.5 Low back pain; M51.36 Other intervertebral disc degeneration, lumbar region; M46.96 Unspecified inflammatory spondylopathy, lumbar region; M48.061 Spinal stenosis, lumbar region without neurogenic claudication; J44.9 Chronic obstructive pulmonary disease, unspecified; F32.9 Major depressive disorder, single episode, unspecified; I10 Essential (primary) hypertension; E03.9 Hypothyroidism, unspecified; M17.11 Unilateral primary osteoarthritis, right knee; E66.01 Morbid (severe) obesity due to excess calories; Z68.42 Body mass index [BMI] 45.0-49.9, adult; Z79.82 Long term (current) use of aspirin; Z79.899 Other long term (current) drug therapy; Z87.891 Personal history of nicotine dependence; Z79.891 Long term (current) use of opiate analgesic
CPT/HCPCS: 64493; 64494; 64495; J0702; 64450

== ENCOUNTER 2021-03-04 12:20 | Inpatient (IN) | payer SELFPAY ==
[2021-03-04] MEDS ORDERED: Aspirin 81 MG Tab.Chew PO ONE (13:57)
[2021-03-04 14:37] LABS: BLOOD UREA NITROGEN,BUN 18 mg/dL (7.0-18.0); CARBON DIOXIDE,CO2 30.4 mmol/L (21.0-32.0); CHLORIDE,CL 100 mmol/L (98-107); GLUCOSE RANDOM 126 mg/dL (74-106); POTASSIUM,K 3.8 mmol/L (3.5-5.1); SODIUM,NA 138 mmol/L (136-145)
--- NOTE | 2021-03-04 14:47 | CR ---
CHEST 1 VIEW AP INDICATION: Shortness of breath IMPRESSION: Lordotic view. Normal heart size and vascular pattern. Lungs are clear of focal opacities. No pneumothorax or pleural abnormality. Dictated by Kip Giordano MD @ 03/04/2021 2:46:[address] Kip Giordano @ Mar 04 2021 2:46PM
[2021-03-04] MEDS ORDERED: Ketorolac 15 MG/ML SDV IVPUSH ONE (14:52)
[2021-03-04] MEDS ORDERED: REMDESIVIR 200 MG in Sodium Chloride 0.9% 250 ML IV ONE ×2 (15:00→15:15)
[2021-03-04] MEDS ORDERED: Dexamethasone 4 MG Tab PO ONE (15:01)
--- NOTE | 2021-03-04 15:34 | PCM.HP.2 ---
H&P History of Present Illness - General Date of Service: 03/04/21 Admit Problem/Dx: Admission Diagnosis/Problem Admission Diagnosis/Problem acute hypoxic respiratory failure, COVID-19 Source of Information: Patient History Limitations: Reports: No Limitations - History of Present Illness Initial Comments - Free Text/Narative: This 60-year-old female with past medical history of COPD, hypertension, hypothyroidism anxiety and depression presented to the ER with complaints of fevers chills diarrhea and headache. Patient reports that she started feeling ill with headache fevers and chills approximately 3 to 4 days ago. She reports that after that the headache continued to worsen and has not been relieved with medications at home. She also reports that nausea vomiting and diarrhea started 2 days ago and the diarrhea has been nonstop having 1 incontinent episode this morning. She reports that she otherwise does not leave the house but does state that about 1 week ago or so she went to the bar with her grandson. She reports she has not been vaccinated for COVID-19 at this time. She denies any chest pain but does report shortness of breath especially with any exertion. She reports productive cough with clear mucus. Denies any hemoptysis. Reports mild abdominal tenderness diffusely with diarrhea and nausea and vomiting. She denies any black or bloody bowel movements. She denies any history of CAD or diabetes. She denies any tobacco use, alcohol use. She reports she does intermittently smoke marijuana but has not done so in many months. In the ER no leukocytosis noted hemoglobin 13.3 hematocrit 40.5 platelet count 139,000. Sodium 138 potassium 3.8. BUN 18 creatinine 1.2 glucose 126. AST ALT total bilirubin within normal limits troponin negative she was found to be Covid positive. Chest x-ray negative. Vital signs on arrival reveal temperature 98.6 pulse rate 69 blood pressure 132/63 respiratory rate 20 but noted to be hypoxic at 85% on room air. In the ER she was started on dexamethasone 6 mg p.o. daily along with loading dose of remdesivir 200 mg IV x1. She was also given aspirin 324 mg along with Toradol 15 mg IV push for headache. She will be admitted inpatient for acute hypoxic respiratory failure secondary to COVID-19. headache Pain Score (Numeric/FACES): 10 - Related Data Allergies/Adverse Reactions: Allergies Allergy/AdvReac Type Severity Reaction Status Date / Time No Known Allergies Allergy Verified 03/04/21 12:43 Home Medications: Home Meds Aspirin 1 tab PO DAILY 09/25/17 [History] Levothyroxine 80 mcg PO ACBREAKFAST 09/25/17 [History] oxyCODONE 10 mg PO Q6H PRN 12/29/17 [History] Acetaminophen [Tylenol Extra Strength] 2 tab PO Q4H PRN 03/04/21 [History] Metoprolol Succinate 50 mg PO DAILY 03/04/21 [History] Multivitamin [One Daily Essential] 1 tab PO DAILY 03/04/21 [History] Past Medical History HEENT History: Reports: None Cardiovascular History: Reports: Hypertension. Denies: Afib, Blood Clots/VTE/DVT, CAD, IN Respiratory History: Reports: COPD. Denies: Sleep Apnea Gastrointestinal History: Reports: None. Denies: GERD Genitourinary History: Reports: None. 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: Musculoskeletal History: Reports: Osteoarthritis, Other (See Below) (chronic pain on narcotics) Neurological History: Reports: None Psychiatric History: Reports: Anxiety, Depression Endocrine/Metabolic History: Reports: Hypothyroidism, Obesity/BMI 30+ Hematologic History: Reports: None Immunologic History: Reports: None Oncologic (Cancer) History: Reports: None Dermatologic History: Reports: None - Infectious Disease History Infectious Disease History: Reports: Chicken Pox - Past Surgical History HEENT Surgical History: Reports: Tonsillectomy Social & Family History - Family History Family Medical History: No Pertinent Family History - Tobacco Use Tobacco Use Status *Q: Never Tobacco User - Caffeine Use Caffeine Use: Reports: Soda - Alcohol Use Alcohol Use History: No - Recreational Drug Use Recreational Drug Use: Yes Drug Use in Last 12 Months: Yes Recreational Drug Type: Reports: Marijuana/Hashish Recreational Drug Use Frequency: Monthly - Living Situation & Occupation Living situation: Reports: with Family H&P Review of Systems - Review of Systems: Review Of Systems: See Below General: Reports: Fever, Chills, Malaise, Weakness, Fatigue HEENT: Reports: Headaches (all over throbbing), Sore Throat. Denies: Sinus Congestion, Vertigo, Visual Changes Pulmonary: Reports: Shortness of Breath, Cough, Sputum. Denies: Wheezing, Pleuritic Chest Pain, Hemoptysis Cardiovascular: Reports: Dyspnea on Exertion. Denies: Chest Pain, Palpitations, Edema, Lightheadedness, Syncope Gastrointestinal: Reports: Abdominal Pain (diffuse tenderness,), Diarrhea, Decreased Appetite, Nausea, Vomiting. Denies: Black Stool, Bloody Stool Genitourinary: Reports: No Symptoms. Denies: Dysuria, Frequency, Burning Musculoskeletal: Reports: No Symptoms Skin: Reports: No Symptoms Psychiatric: Reports: No Symptoms Neurological: Reports: No Symptoms Hematologic/Lymphatic: Reports: No Symptoms Immunologic: Reports: No Symptoms Exam - Exam Exam: See Below - Vital Signs Vital Signs: Last Vital Signs Temp 98.6 F 03/04/21 12:39 Pulse 69 03/04/21 12:39 Resp 20 03/04/21 12:39 BP 132/63 03/04/21 12:39 Pulse Ox 95 03/04/21 13:52 Weight: 117.934 kg - Exam Quality Assessment: Supplemental Oxygen, DVT Prophylaxis General: Alert, Oriented, Cooperative, Mild Distress (having headache, eyes cov ered with cool washcloth at times clutching head in pain.) HEENT: Mucosa Moist & Ashmore, Posterior Pharynx Clear Lungs: Normal Respiratory Effort, Decreased Breath Sounds (bibasilar). No: Crackles Cardiovascular: Regular Rate, Regular Rhythm GI/Abdominal Exam: Normal Bowel Sounds, Soft, Tender (slightly tender diffusely, no overt pain) Extremities: Normal Inspection, Normal Range of Motion, Non-Tender, No Pedal Edema Neuro Extensive - Mental Status: Alert, Oriented x3 Neuro Extensive - Motor, Sensory, Reflexes: CN II-XII Intact Psychiatric: Alert, Normal Affect, Normal Mood - Patient Data Lab Results Last 24 hrs: Laboratory Results - last 24 hr 03/04/21 03/04/21 03/04/21 Range/Units 13:44 13:44 13:44 WBC 4.36 (4.0-11.0) K/uL RBC 3.99 L (4.30-5.90) M/uL Hgb 13.3 (12.0-16.0) g/dL Hct 40.5 (36.0-46.0) % MCV 101.5 H (80.0-98.0) fL MCH 33.3 H (27.0-32.0) pg MCHC 32.8 (31.0-37.0) g/dL RDW Std Deviation 52.7 (28.0-62.0) fl RDW Coeff of Juju 14 (11.0-15.0) % Plt Count 139 L (150-400) K/uL MPV 11.00 (7.40-12.00) fL Neut % (Auto) 76.3 (48.0-80.0) % Lymph % (Auto) 17.7 (16.0-40.0) % Vigo % (Auto) 5.5 (0.0-15.0) % Eos % (Auto) 0.0 (0.0-7.0) % Baso % (Auto) 0.5 (0.0-1.5) % Neut # (Auto) 3.3 (1.4-5.7) K/uL Lymph # (Auto) 0.8 (0.6-2.4) K/uL Vigo # (Auto) 0.2 (0.0-0.8) K/uL Eos # (Auto) 0.0 (0.0-0.7) K/uL Baso # (Auto) 0.0 (0.0-0.1) K/uL Nucleated RBC % 0.0 /100WBC Nucleated RBCs # 0 K/uL Sodium 138 (136-145) mmol/L Potassium 3.8 (3.5-5.1) mmol/L Chloride 100 (98-107) mmol/L Carbon Dioxide 30.4 (21.0-32.0) mmol/L BUN 18 (7.0-18.0) mg/dL Creatinine 1.2 H (0.6-1.0) mg/dL Est Cr Clr Drug Dosing 36.26 mL/min Estimated GFR (MDRD) 46.0 ml/min Glucose 126 H (74-106) mg/dL Calcium 8.5 (8.5-10.1) mg/dL Total Bilirubin 0.4 (0.2-1.0) mg/dL Direct Bilirubin (0.0-0.5) mg/dL AST 29 (15-37) IU/L ALT 32 (14-63) IU/L Alkaline Phosphatase 74 (46-116) U/L Troponin I < 0.050 (0.000-0.056) ng/mL B-Natriuretic Peptide 29 (<100) PG/ML Total Protein 7.2 (6.4-8.2) g/dL Albumin 3.4 (3.4-5.0) g/dL Globulin 3.8 (2.6-4.0) g/dL Albumin/Globulin Ratio 0.9 (0.9-1.6) SARS-CoV-2 RNA (VALARIE) (NEGATIVE) 03/04/21 03/04/21 Range/Units 13:44 14:00 WBC (4.0-11.0) K/uL RBC (4.30-5.90) M/uL Hgb (12.0-16.0) g/dL Hct (36.0-46.0) % MCV (80.0-98.0) fL MCH (27.0-32.0) pg MCHC (31.0-37.0) g/dL RDW Std Deviation (28.0-62.0) fl RDW Coeff of Juju (11.0-15.0) % Plt Count (150-400) K/uL MPV (7.40-12.00) fL Neut % (Auto) (48.0-80.0) % Lymph % (Auto) (16.0-40.0) % Vigo % (Auto) (0.0-15.0) % Eos % (Auto) (0.0-7.0) % Baso % (Auto) (0.0-1.5) % Neut # (Auto) (1.4-5.7) K/uL Lymph # (Auto) (0.6-2.4) K/uL Vigo # (Auto) (0.0-0.8) K/uL Eos # (Auto) (0.0-0.7) K/uL Baso # (Auto) (0.0-0.1) K/uL Nucleated RBC % /100WBC Nucleated RBCs # K/uL Sodium (136-145) mmol/L Potassium (3.5-5.1) mmol/L Chloride (98-107) mmol/L Carbon Dioxide (21.0-32.0) mmol/L BUN (7.0-18.0) mg/dL Creatinine (0.6-1.0) mg/dL Est Cr Clr Drug Dosing mL/min Estimated GFR (MDRD) ml/min Glucose (74-106) mg/dL Calcium (8.5-10.1) mg/dL Total Bilirubin (0.2-1.0) mg/dL Direct Bilirubin 0.10 (0.0-0.5) mg/dL AST (15-37) IU/L ALT (14-63) IU/L Alkaline Phosphatase (46-116) U/L Troponin I (0.000-0.056) ng/mL B-Natriuretic Peptide (<100) PG/ML Total Protein (6.4-8.2) g/dL Albumin (3.4-5.0) g/dL Globulin (2.6-4.0) g/dL Albumin/Globulin Ratio (0.9-1.6) SARS-CoV-2 RNA (VALARIE) POSITIVE H (NEGATIVE) Result Diagrams: 03/04/21 13:44 03/04/21 13:44 Sepsis Event Note - Evaluation Sepsis Screening Result: No Definite Risk - Focused Exam Vital Signs: Vital Signs Temp Pulse Resp BP Pulse Ox 03/04/21 13:52 95 03/04/21 12:39 98.6 F 69 20 132/63 88 L - Problem List (1) COVID-19 SNOMED Code(s): 641043969 ICD Code: U07.1 - COVID-19 Status: Acute Current Visit: Yes (2) Acute respiratory failure with hypoxia SNOMED Code(s): 91873662, 862831389 ICD Code: J96.01 - ACUTE RESPIRATORY FAILURE WITH HYPOXIA Status: Acute Current Visit: Yes (3) Hypertension SNOMED Code(s): 00204404 ICD Code: I10 - ESSENTIAL (PRIMARY) HYPERTENSION Status: Chronic Current Visit: Yes (4) COPD (chronic obstructive pulmonary disease) SNOMED Code(s): 66087084 ICD Code: J44.9 - CHRONIC OBSTRUCTIVE PULMONARY DISEASE, UNSPECIFIED Status: Chronic Current Visit: Yes (5) Hypothyroidism SNOMED Code(s): 26975777 ICD Code: E03.9 - HYPOTHYROIDISM, UNSPECIFIED Status: Chronic Current Visit: Yes (6) Obesity SNOMED Code(s): 719035428, 131638621 ICD Code: E66.9 - OBESITY, UNSPECIFIED Status: Chronic Current Visit: Yes Problem List Initiated/Reviewed/Updated: Yes Orders Last 24hrs: Active Orders 24 hr Category Date Time Status Admission Status [Patient Status] [ADT] Stat ADT 03/04/21 14:58 Active Cardiac Monitoring [RC] . DIRECTED Care 03/04/21 14:58 Active EKG Documentation Completion [RC] STAT Care 03/04/21 14:01 Active BILIRUBIN DIRECT [CHEM] DAILY Lab 03/05/21 15:15 Ordered BILIRUBIN DIRECT [CHEM] DAILY Lab 03/06/21 15:15 Ordered BILIRUBIN DIRECT [CHEM] DAILY Lab 03/07/21 15:15 Ordered BILIRUBIN DIRECT [CHEM] DAILY Lab 03/08/21 15:15 Ordered COMPREHENSIVE METABOLIC PN,CMP [CHEM] DAILY Lab 03/05/21 15:15 Ordered COMPREHENSIVE METABOLIC PN,CMP [CHEM] DAILY Lab 03/06/21 15:15 Ordered COMPREHENSIVE METABOLIC PN,CMP [CHEM] DAILY Lab 03/07/21 15:15 Ordered COMPREHENSIVE METABOLIC PN,CMP [CHEM] DAILY Lab 03/08/21 15:15 Ordered Remdesivir 200 mg Med 03/04/21 15:15 Active Sodium Chloride 0.9% [Normal Saline] 250 ml IV ONETIME Medication Orders Remdesivir 200 mg/ Sodium (Chloride) 250 mls @ 250 mls/hr IV ONETIME ONE Stop: 03/04/21 16:14 Assessment/Plan Comment:: This 60-year-old female admitted with acute hypoxic respiratory failure and COVID-19 1. Acute hypoxic respiratory failure and COVID-19 Continue dexamethasone 6 mg p.o. daily Continue remdesivir 100 mg IV daily Oxygen to keep sats greater than 92% nurse or RT to titrate as needed I-S and Acapella encouraged Proning encouraged for at least most of the day as tolerated. Combivent every 4 hours as needed dyspnea/wheezing Lovenox 40 mg subcu daily Monitor transaminitis daily with remdesivir dosing Supportive care for COVID-19 Tessalon Perles as needed cough 2. Hypertension -Continue metoprolol and aspirin -Monitor electrolytes daily 3. Hypothyroidism -Continue levothyroxine 4. Chronic pain -Continue oxycodone 10 mg Q6hrs PRN pain VTE prophylaxis: Lovenox GI prophylaxis: Protonix CODE STATUS: Full code Dispo: 2 to 3 days pending improvement. - Mortality Measure Prognosis:: Good
[2021-03-04] MEDS ORDERED: Sodium Chloride 0.9% 2.5 ML Syringe FLUSH PRN (15:37)
[2021-03-04] MEDS ORDERED: Ondansetron 4 MG/2 ML SDV IVPUSH PRN (15:37)
[2021-03-04] MEDS ORDERED: Codeine/guaiFENesin 10-100 MG/5 ML Syrup 5 ML Cup PO PRN (15:40)
[2021-03-04] MEDS ORDERED: Benzonatate 100 MG Cap PO PRN (15:40)
[2021-03-04] MEDS ORDERED: Pantoprazole 40 MG in Sodium Chloride 0.9% 10 ML IV ONE (15:41)
[2021-03-04] MEDS: Acetaminophen 325 MG Tab PO PRN (16:22)
[2021-03-04] MEDS: Enoxaparin 40 MG/0.4 ML Syringe SUBCUT SCH (16:23)
[2021-03-04] MEDS: oxyCODONE 5 MG Tab PO PRN (18:34)
[2021-03-04] MEDS: Albuterol/Ipratropium 4 GM Inhalation Spray INH PRN (19:04)
[2021-03-05] MEDS: oxyCODONE 5 MG Tab PO PRN ×5 (00:35→23:47)
[2021-03-05 05:46] LABS: CARBON DIOXIDE,CO2 29.3 mmol/L (21.0-32.0); POTASSIUM,K 4.7 mmol/L (3.5-5.1)
[2021-03-05] MEDS: Levothyroxine 100 MCG Tab PO SCH (06:34)
[2021-03-05] MEDS: Acetaminophen 325 MG Tab PO PRN ×2 (08:24→23:47)
[2021-03-05] MEDS: Metoprolol Succinate 50 MG Tab.ER PO SCH (08:25)
[2021-03-05] MEDS: Multivitamin Tab PO SCH (08:25)
[2021-03-05] MEDS: Aspirin 81 MG Tab.Chew PO SCH (08:25)
[2021-03-05] MEDS: Dexamethasone 4 MG Tab PO SCH (08:25)
[2021-03-05] MEDS: Pantoprazole 40 MG Tab.CR PO SCH (08:25)
--- NOTE | 2021-03-05 08:39 | PCM.PN ---
- General Info Date of Service: 03/05/21 Admission Dx/Problem (Free Text): Admission Diagnosis/Problem Admission Diagnosis/Problem acute hypoxic respiratory failure, COVID-19 Subjective Update: Reports he is feeling mildly improved today continues to have headache had some relief overnight with Tylenol we will continue Tylenol Motrin alternating. Denies any chest pain. Reports some tightness with breathing and some shortness of breath but this has also improved. Denies any swelling or abdominal pain. Reports she still feeling a little bit nauseated with poor appetite but has not had any diarrhea since admission. Functional Status: Reports: Pain Controlled, Tolerating Diet, Ambulating, Urinating - Review of Systems General: Reports: Weakness, Fatigue, Malaise HEENT: Reports: Headaches (throbbing all over, no vision changes. ) Pulmonary: Reports: Shortness of Breath, Cough. Denies: Hemoptysis Cardiovascular: Reports: No Symptoms. Denies: Chest Pain, Palpitations, Edema, Lightheadedness Gastrointestinal: Reports: Decreased Appetite, Nausea. Denies: Abdominal Pain, Diarrhea, Vomiting Genitourinary: Reports: No Symptoms. Denies: Dysuria, Frequency Musculoskeletal: Reports: No Symptoms. Denies: Neck Pain Skin: Reports: No Symptoms Neurological: Reports: No Symptoms Psychiatric: Reports: No Symptoms - Patient Data Vitals - Most Recent: Last Vital Signs Temp 98.2 F 03/05/21 08:00 Pulse 68 03/05/21 08:25 Resp 20 03/05/21 08:00 BP 118/72 03/05/21 08:25 Pulse Ox 93 L 03/05/21 08:00 Weight - Most Recent: 116.981 kg I&O - Last 24 Hours: Intake & Output 03/04/21 03/05/21 03/05/21 22:59 06:59 14:59 Intake Total 720 Output Total 450 Balance 270 Lab Results Last 24 Hours: Laboratory Results - last 24 hr 03/04/21 03/04/21 03/04/21 Range/Units 13:44 13:44 13:44 WBC 4.36 (4.0-11.0) K/uL RBC 3.99 L (4.30-5.90) M/uL Hgb 13.3 (12.0-16.0) g/dL Hct 40.5 (36.0-46.0) % MCV 101.5 H (80.0-98.0) fL MCH 33.3 H (27.0-32.0) pg MCHC 32.8 (31.0-37.0) g/dL RDW Std Deviation 52.7 (28.0-62.0) fl RDW Coeff of Juju 14 (11.0-15.0) % Plt Count 139 L (150-400) K/uL MPV 11.00 (7.40-12.00) fL Neut % (Auto) 76.3 (48.0-80.0) % Lymph % (Auto) 17.7 (16.0-40.0) % [place] % (Auto) 5.5 (0.0-15.0) % Eos % (Auto) 0.0 (0.0-7.0) % Baso % (Auto) 0.5 (0.0-1.5) % Neut # (Auto) 3.3 (1.4-5.7) K/uL Lymph # (Auto) 0.8 (0.6-2.4) K/uL [place] # (Auto) 0.2 (0.0-0.8) K/uL Eos # (Auto) 0.0 (0.0-0.7) K/uL Baso # (Auto) 0.0 (0.0-0.1) K/uL Nucleated RBC % 0.0 /100WBC Nucleated RBCs # 0 K/uL Sodium 138 (136-145) mmol/L Potassium 3.8 (3.5-5.1) mmol/L Chloride 100 (98-107) mmol/L Carbon Dioxide 30.4 (21.0-32.0) mmol/L BUN 18 (7.0-18.0) mg/dL Creatinine 1.2 H (0.6-1.0) mg/dL Est Cr Clr Drug Dosing 36.26 mL/min Estimated GFR (MDRD) 46.0 ml/min Glucose 126 H (74-106) mg/dL Calcium 8.5 (8.5-10.1) mg/dL Magnesium (1.8-2.4) mg/dL Total Bilirubin 0.4 (0.2-1.0) mg/dL Direct Bilirubin (0.0-0.5) mg/dL AST 29 (15-37) IU/L ALT 32 (14-63) IU/L Alkaline Phosphatase 74 (46-116) U/L Troponin I < 0.050 (0.000-0.056) ng/mL B-Natriuretic Peptide 29 (<100) PG/ML Total Protein 7.2 (6.4-8.2) g/dL Albumin 3.4 (3.4-5.0) g/dL Globulin 3.8 (2.6-4.0) g/dL Albumin/Globulin Ratio 0.9 (0.9-1.6) SARS-CoV-2 RNA ([facility]) (NEGATIVE) 03/04/21 03/04/21 03/05/21 Range/Units 13:44 14:00 05:08 WBC 3.87 L (4.0-11.0) K/uL RBC 3.83 L (4.30-5.90) M/uL Hgb 12.8 (12.0-16.0) g/dL Hct 38.4 (36.0-46.0) % MCV 100.3 H (80.0-98.0) fL MCH 33.4 H (27.0-32.0) pg MCHC 33.3 (31.0-37.0) g/dL RDW Std Deviation 50.8 (28.0-62.0) fl RDW Coeff of Juju 14 (11.0-15.0) % Plt Count 131 L (150-400) K/uL MPV 11.00 (7.40-12.00) fL Neut % (Auto) 72.3 (48.0-80.0) % Lymph % (Auto) 20.9 (16.0-40.0) % [place] % (Auto) 6.2 (0.0-15.0) % Eos % (Auto) 0.3 (0.0-7.0) % Baso % (Auto) 0.3 (0.0-1.5) % Neut # (Auto) 2.8 (1.4-5.7) K/uL Lymph # (Auto) 0.8 (0.6-2.4) K/uL [place] # (Auto) 0.2 (0.0-0.8) K/uL Eos # (Auto) 0.0 (0.0-0.7) K/uL Baso # (Auto) 0.0 (0.0-0.1) K/uL Nucleated RBC % 0.4 /100WBC Nucleated RBCs # 0 K/uL Sodium (136-145) mmol/L Potassium (3.5-5.1) mmol/L Chloride (98-107) mmol/L Carbon Dioxide (21.0-32.0) mmol/L BUN (7.0-18.0) mg/dL Creatinine (0.6-1.0) mg/dL Est Cr Clr Drug Dosing mL/min Estimated GFR (MDRD) ml/min Glucose (74-106) mg/dL Calcium (8.5-10.1) mg/dL Magnesium (1.8-2.4) mg/dL Total Bilirubin (0.2-1.0) mg/dL Direct Bilirubin 0.10 (0.0-0.5) mg/dL AST (15-37) IU/L ALT (14-63) IU/L Alkaline Phosphatase (46-116) U/L Troponin I (0.000-0.056) ng/mL B-Natriuretic Peptide (<100) PG/ML Total Protein (6.4-8.2) g/dL Albumin (3.4-5.0) g/dL Globulin (2.6-4.0) g/dL Albumin/Globulin Ratio (0.9-1.6) SARS-CoV-2 RNA (VALARIE) POSITIVE H (NEGATIVE) 03/05/21 Range/Units 05:08 WBC (4.0-11.0) K/uL RBC (4.30-5.90) M/uL Hgb (12.0-16.0) g/dL Hct (36.0-46.0) % MCV (80.0-98.0) fL MCH (27.0-32.0) pg MCHC (31.0-37.0) g/dL RDW Std Deviation (28.0-62.0) fl RDW Coeff of Juju (11.0-15.0) % Plt Count (150-400) K/uL MPV (7.40-12.00) fL Neut % (Auto) (48.0-80.0) % Lymph % (Auto) (16.0-40.0) % [place] % (Auto) (0.0-15.0) % Eos % (Auto) (0.0-7.0) % Baso % (Auto) (0.0-1.5) % Neut # (Auto) (1.4-5.7) K/uL Lymph # (Auto) (0.6-2.4) K/uL [place] # (Auto) (0.0-0.8) K/uL Eos # (Auto) (0.0-0.7) K/uL Baso # (Auto) (0.0-0.1) K/uL Nucleated RBC % /100WBC Nucleated RBCs # K/uL Sodium 137 (136-145) mmol/L Potassium 4.7 (3.5-5.1) mmol/L Chloride 102 (98-107) mmol/L Carbon Dioxide 29.3 (21.0-32.0) mmol/L BUN 21 H (7.0-18.0) mg/dL Creatinine 1.0 (0.6-1.0) mg/dL Est Cr Clr Drug Dosing 43.51 mL/min Estimated GFR (MDRD) 56.7 ml/min Glucose 128 H (74-106) mg/dL Calcium 8.2 L (8.5-10.1) mg/dL Magnesium 2.0 (1.8-2.4) mg/dL Total Bilirubin 0.5 (0.2-1.0) mg/dL Direct Bilirubin (0.0-0.5) mg/dL AST 27 (15-37) IU/L ALT 32 (14-63) IU/L Alkaline Phosphatase 64 (46-116) U/L Troponin I (0.000-0.056) ng/mL B-Natriuretic Peptide (<100) PG/ML Total Protein 6.7 (6.4-8.2) g/dL Albumin 3.0 L (3.4-5.0) g/dL Globulin 3.7 (2.6-4.0) g/dL Albumin/Globulin Ratio 0.8 L (0.9-1.6) SARS-CoV-2 RNA ([facility]) (NEGATIVE) Med Orders - Current: Current Medications Acetaminophen (Acetaminophen 325 Mg Tab) 650 mg PO Q4H PRN PRN Reason: Pain (Mild 1-3)/fever Last Admin: 03/05/21 08:24 Dose: 650 mg Documented by: Albuterol/Ipratropium (Albuterol/Ipratropium 4 Gm Inhalation [place]) 0 gm INH Q4H PRN PRN Reason: Dyspnea Last Admin: 03/04/21 19:04 Dose: 1 puff Documented by: Aspirin (Aspirin 81 Mg Tab.Chew) 81 mg PO DAILY [facility] Last Admin: 03/05/21 08:25 Dose: 81 mg Documented by: Benzonatate (Benzonatate 100 Mg Cap) 200 mg PO TID PRN PRN Reason: Cough Dexamethasone (Dexamethasone 4 Mg Tab) 6 mg PO DAILY [facility] Stop: 03/13/21 09:01 Last Admin: 03/05/21 08:25 Dose: 6 mg Documented by: Enoxaparin Sodium (Enoxaparin 40 Mg/0.4 Ml Syringe) 40 mg SUBCUT Q24H [facility] Last Admin: 03/04/21 16:23 Dose: 40 mg Documented by: Guaifenesin/Codeine Phosphate (Codeine/Guaifenesin 10-100 Mg/5 Ml Syrup 5 Ml Cup) 5 ml PO Q4H PRN PRN Reason: Cough Remdesivir 100 mg/ Sodium (Chloride) 100 mls @ 100 mls/hr IV Q24H [facility] Stop: 03/08/21 15:59 Ibuprofen (Ibuprofen 400 Mg Tab) 400 mg PO Q6H PRN PRN Reason: Pain (mild 1-3) Levothyroxine Sodium (Levothyroxine 100 Mcg Tab) 100 mcg PO ACBREAKFAST [facility] Last Admin: 03/05/21 06:34 Dose: 100 mcg Documented by: Metoprolol Succinate (Metoprolol Succinate 50 Mg Tab.Er) 50 mg PO DAILY [facility] Last Admin: 03/05/21 08:25 Dose: 50 mg Documented by: Multivitamins/Minerals/Vitamin C (Multivitamin Tab) 1 tab PO DAILY [facility] Last Admin: 03/05/21 08:25 Dose: 1 tab Documented by: Ondansetron HCl (Ondansetron 4 Mg/2 Ml Sdv) 4 mg IVPUSH Q4H PRN PRN Reason: Nausea Oxycodone HCl (Oxycodone 5 Mg Tab) 10 mg PO Q6H PRN PRN Reason: Pain Last Admin: 03/05/21 06:34 Dose: 10 mg Documented by: Pantoprazole Sodium (Pantoprazole 40 Mg Tab.Cr) 40 mg PO DAILY [facility] Last Admin: 03/05/21 08:25 Dose: 40 mg Documented by: Sodium Chloride (Sodium Chloride 0.9% 2.5 Ml Syringe) 2.5 ml FLUSH ASDIRECTED PRN PRN Reason: Keep Vein Open Discontinued Medications Aspirin (Aspirin 81 Mg Tab.Chew) 324 mg PO ONETIME ONE Stop: 03/04/21 13:58 Last Admin: 03/04/21 14:36 Dose: 324 mg Documented by: Dexamethasone (Dexamethasone 4 Mg Tab) 6 mg PO ONETIME ONE Stop: 03/04/21 15:02 Last Admin: 03/04/21 15:20 Dose: 6 mg Documented by: Remdesivir 200 mg/ Sodium (Chloride) 250 mls @ 250 mls/hr IV ONETIME ONE Stop: 03/04/21 15:01 Last Admin: 03/04/21 16:37 Dose: Not Given Documented by: Remdesivir 200 mg/ Sodium (Chloride) 250 mls @ 250 mls/hr IV ONETIME ONE Stop: 03/04/21 16:14 Last Admin: 03/04/21 16:36 Dose: 250 mls/hr Documented by: Pantoprazole Sodium 40 mg/ (Sodium Chloride) 10 mls @ 300 mls/hr IV NOW ONE Stop: 03/04/21 15:42 Last Admin: 03/04/21 16:23 Dose: 300 mls/hr Documented by: Ketorolac Tromethamine (Ketorolac 15 Mg/Ml Sdv) 15 mg IVPUSH ONETIME ONE Stop: 03/04/21 14:53 Last Admin: 03/04/21 15:19 Dose: 15 mg Documented by: Oxycodone HCl (Oxycodone Hcl 10 Mg Tablet) 10 mg PO TID [facility] - Exam Quality Assessment: Supplemental Oxygen, DVT Prophylaxis General: Alert, Oriented, Cooperative, Mild Distress (headache, ice pack noted to face and head) Neck: Supple, +2 Carotid Pulse wo Bruit Lungs: Normal Respiratory Effort, Decreased Breath Sounds Cardiovascular: Regular Rate, Regular Rhythm GI/Abdominal Exam: Normal Bowel Sounds, Soft, Non-Tender Back Exam: Normal Inspection, Full Range of Motion Extremities: Normal Inspection, Normal Range of Motion, Non-Tender, No Pedal Edema Neurological: No New Focal Deficit Psy/Mental Status: Alert, Normal Affect, Normal Mood - Patient Data Lab Results Last 24 hrs: Laboratory Results - last 24 hr 03/04/21 03/04/21 03/04/21 Range/Units 13:44 13:44 13:44 WBC 4.36 (4.0-11.0) K/uL RBC 3.99 L (4.30-5.90) M/uL Hgb 13.3 (12.0-16.0) g/dL Hct 40.5 (36.0-46.0) % MCV 101.5 H (80.0-98.0) fL MCH 33.3 H (27.0-32.0) pg MCHC 32.8 (31.0-37.0) g/dL RDW Std Deviation 52.7 (28.0-62.0) fl RDW Coeff of Juju 14 (11.0-15.0) % Plt Count 139 L (150-400) K/uL MPV 11.00 (7.40-12.00) fL Neut % (Auto) 76.3 (48.0-80.0) % Lymph % (Auto) 17.7 (16.0-40.0) % [place] % (Auto) 5.5 (0.0-15.0) % Eos % (Auto) 0.0 (0.0-7.0) % Baso % (Auto) 0.5 (0.0-1.5) % Neut # (Auto) 3.3 (1.4-5.7) K/uL Lymph # (Auto) 0.8 (0.6-2.4) K/uL [place] # (Auto) 0.2 (0.0-0.8) K/uL Eos # (Auto) 0.0 (0.0-0.7) K/uL Baso # (Auto) 0.0 (0.0-0.1) K/uL Nucleated RBC % 0.0 /100WBC Nucleated RBCs # 0 K/uL Sodium 138 (136-145) mmol/L Potassium 3.8 (3.5-5.1) mmol/L Chloride 100 (98-107) mmol/L Carbon Dioxide 30.4 (21.0-32.0) mmol/L BUN 18 (7.0-18.0) mg/dL Creatinine 1.2 H (0.6-1.0) mg/dL Est Cr Clr Drug Dosing 36.26 mL/min Estimated GFR (MDRD) 46.0 ml/min Glucose 126 H (74-106) mg/dL Calcium 8.5 (8.5-10.1) mg/dL Magnesium (1.8-2.4) mg/dL Total Bilirubin 0.4 (0.2-1.0) mg/dL Direct Bilirubin (0.0-0.5) mg/dL AST 29 (15-37) IU/L ALT 32 (14-63) IU/L Alkaline Phosphatase 74 (46-116) U/L Troponin I < 0.050 (0.000-0.056) ng/mL B-Natriuretic Peptide 29 (<100) PG/ML Total Protein 7.2 (6.4-8.2) g/dL Albumin 3.4 (3.4-5.0) g/dL Globulin 3.8 (2.6-4.0) g/dL Albumin/Globulin Ratio 0.9 (0.9-1.6) SARS-CoV-2 RNA ([facility]) (NEGATIVE) 03/04/21 03/04/21 03/05/21 Range/Units 13:44 14:00 05:08 WBC 3.87 L (4.0-11.0) K/uL RBC 3.83 L (4.30-5.90) M/uL Hgb 12.8 (12.0-16.0) g/dL Hct 38.4 (36.0-46.0) % MCV 100.3 H (80.0-98.0) fL MCH 33.4 H (27.0-32.0) pg MCHC 33.3 (31.0-37.0) g/dL RDW Std Deviation 50.8 (28.0-62.0) fl RDW Coeff of Juju 14 (11.0-15.0) % Plt Count 131 L (150-400) K/uL MPV 11.00 (7.40-12.00) fL Neut % (Auto) 72.3 (48.0-80.0) % Lymph % (Auto) 20.9 (16.0-40.0) % [place] % (Auto) 6.2 (0.0-15.0) % Eos % (Auto) 0.3 (0.0-7.0) % Baso % (Auto) 0.3 (0.0-1.5) % Neut # (Auto) 2.8 (1.4-5.7) K/uL Lymph # (Auto) 0.8 (0.6-2.4) K/uL [place] # (Auto) 0.2 (0.0-0.8) K/uL Eos # (Auto) 0.0 (0.0-0.7) K/uL Baso # (Auto) 0.0 (0.0-0.1) K/uL Nucleated RBC % 0.4 /100WBC Nucleated RBCs # 0 K/uL Sodium (136-145) mmol/L Potassium (3.5-5.1) mmol/L Chloride (98-107) mmol/L Carbon Dioxide (21.0-32.0) mmol/L BUN (7.0-18.0) mg/dL Creatinine (0.6-1.0) mg/dL Est Cr Clr Drug Dosing mL/min Estimated GFR (MDRD) ml/min Glucose (74-106) mg/dL Calcium (8.5-10.1) mg/dL Magnesium (1.8-2.4) mg/dL Total Bilirubin (0.2-1.0) mg/dL Direct Bilirubin 0.10 (0.0-0.5) mg/dL AST (15-37) IU/L ALT (14-63) IU/L Alkaline Phosphatase (46-116) U/L Troponin I (0.000-0.056) ng/mL B-Natriuretic Peptide (<100) PG/ML Total Protein (6.4-8.2) g/dL Albumin (3.4-5.0) g/dL Globulin (2.6-4.0) g/dL Albumin/Globulin Ratio (0.9-1.6) SARS-CoV-2 RNA ([facility]) POSITIVE H (NEGATIVE) 03/05/21 Range/Units 05:08 WBC (4.0-11.0) K/uL RBC (4.30-5.90) M/uL Hgb (12.0-16.0) g/dL Hct (36.0-46.0) % MCV (80.0-98.0) fL MCH (27.0-32.0) pg MCHC (31.0-37.0) g/dL RDW Std Deviation (28.0-62.0) fl RDW Coeff of Juju (11.0-15.0) % Plt Count (150-400) K/uL MPV (7.40-12.00) fL Neut % (Auto) (48.0-80.0) % Lymph % (Auto) (16.0-40.0) % [place] % (Auto) (0.0-15.0) % Eos % (Auto) (0.0-7.0) % Baso % (Auto) (0.0-1.5) % Neut # (Auto) (1.4-5.7) K/uL Lymph # (Auto) (0.6-2.4) K/uL [place] # (Auto) (0.0-0.8) K/uL Eos # (Auto) (0.0-0.7) K/uL Baso # (Auto) (0.0-0.1) K/uL Nucleated RBC % /100WBC Nucleated RBCs # K/uL Sodium 137 (136-145) mmol/L Potassium 4.7 (3.5-5.1) mmol/L Chloride 102 (98-107) mmol/L Carbon Dioxide 29.3 (21.0-32.0) mmol/L BUN 21 H (7.0-18.0) mg/dL Creatinine 1.0 (0.6-1.0) mg/dL Est Cr Clr Drug Dosing 43.51 mL/min Estimated GFR (MDRD) 56.7 ml/min Glucose 128 H (74-106) mg/dL Calcium 8.2 L (8.5-10.1) mg/dL Magnesium 2.0 (1.8-2.4) mg/dL Total Bilirubin 0.5 (0.2-1.0) mg/dL Direct Bilirubin (0.0-0.5) mg/dL AST 27 (15-37) IU/L ALT 32 (14-63) IU/L Alkaline Phosphatase 64 (46-116) U/L Troponin I (0.000-0.056) ng/mL B-Natriuretic Peptide (<100) PG/ML Total Protein 6.7 (6.4-8.2) g/dL Albumin 3.0 L (3.4-5.0) g/dL Globulin 3.7 (2.6-4.0) g/dL Albumin/Globulin Ratio 0.8 L (0.9-1.6) SARS-CoV-2 RNA ([facility]) (NEGATIVE) Result Diagrams: 03/05/21 05:08 03/05/21 05:08 Sepsis Event Note - Evaluation Sepsis Screening Result: No Definite Risk - Focused Exam Vital Signs: Vital Signs Temp Pulse Pulse Resp BP BP Pulse Ox 03/05/21 08:25 68 118/72 03/05/21 08:00 98.2 F 68 20 118/72 93 L 03/05/21 04:20 96.6 F L 63 18 115/67 96 03/05/21 00:20 96.4 F L 58 L 19 105/59 L 93 L 03/04/21 22:07 19 92 L - Problem List & Annotations (1) COVID-19 SNOMED Code(s): 556454157 Code(s): U07.1 - COVID-19 Status: Acute Current Visit: Yes (2) Acute respiratory failure with hypoxia SNOMED Code(s): 40203774, 571306568 Code(s): J96.01 - ACUTE RESPIRATORY FAILURE WITH HYPOXIA Status: Acute Current Visit: Yes (3) Hypertension SNOMED Code(s): 38005962 Code(s): I10 - ESSENTIAL (PRIMARY) HYPERTENSION Status: Chronic Current Visit: Yes (4) COPD (chronic obstructive pulmonary disease) SNOMED Code(s): 27236435 Code(s): J44.9 - CHRONIC OBSTRUCTIVE PULMONARY DISEASE, UNSPECIFIED Status: Chronic Current Visit: Yes (5) Hypothyroidism SNOMED Code(s): 42209326 Code(s): E03.9 - HYPOTHYROIDISM, UNSPECIFIED Status: Chronic Current Visit: Yes (6) Obesity SNOMED Code(s): 179253254, 425883777 Code(s): E66.9 - OBESITY, UNSPECIFIED Status: Chronic Current Visit: Yes - Problem List Review Problem List Initiated/Reviewed/Updated: Yes - My Orders Last 24 Hours: My Active Orders 03/04/21 Lunch Full Liquid Diet [DIET] 03/04/21 15:36 Telemetry Monitoring [Cardiac Monitoring] [RC] Q8H 03/04/21 15:37 Intake and Output [RC] Q12H May Shower [RC] ASDIRECTED Oxygen Therapy [RC] PRN Up With Assistance [RC] ASDIRECTED VTE/DVT Education [RC] PER UNIT ROUTINE Vital Signs [RC] Q4H Respiratory Care Assess and Treatment [CONS] Routine Acetaminophen [TylenoL] 650 mg PO Q4H PRN Ibuprofen [Motrin] 400 mg PO Q6H PRN Ondansetron [Zofran] 4 mg IVPUSH Q4H PRN Sodium Chloride 0.9% [Saline Flush] 2.5 ml FLUSH ASDIRECTED PRN Saline Lock Insert [OM.PC] Routine Resuscitation Status Routine 03/04/21 15:40 Benzonatate [Tessalon Perles] 200 mg PO TID PRN Codeine/guaiFENesin [Robitussin AC] 5 ml PO Q4H PRN 03/04/21 15:42 Communication Order [RC] ROUTINE RT Incentive Spirometry [RC] Q1HWA RT Acapella [RESPCARE] Routine 03/04/21 15:45 Enoxaparin [Lovenox] 40 mg SUBCUT Q24H 03/04/21 15:46 RT Post Treatment Assessment [RC] Click to Edit RT Pre-Treatment Assessment [RC] Click to Edit Albuterol/Ipratropium [Combivent Respimat] See Dose Instructions INH Q4H PRN 03/04/21 15:53 oxyCODONE 10 mg PO Q6H PRN 03/05/21 07:30 Levothyroxine [Synthroid] 100 mcg PO ACBREAKFAST 03/05/21 09:00 Aspirin 81 mg PO DAILY Metoprolol Succinate [Toprol XL] 50 mg PO DAILY Pantoprazole [ProTONIX] 40 mg PO DAILY dexAMETHasone 6 mg PO DAILY 03/05/21 15:00 Remdesivir 100 mg Sodium Chloride 0.9% [Normal Saline] 100 ml IV Q24H 03/06/21 05:11 CBC WITH AUTO DIFF [HEME] AM COMPREHENSIVE METABOLIC PN,CMP [CHEM] AM MAGNESIUM [CHEM] AM 03/07/21 05:11 CBC WITH AUTO DIFF [HEME] AM COMPREHENSIVE METABOLIC PN,CMP [CHEM] AM MAGNESIUM [CHEM] AM 03/08/21 05:11 CBC WITH AUTO DIFF [HEME] AM COMPREHENSIVE METABOLIC PN,CMP [CHEM] AM MAGNESIUM [CHEM] AM - Plan Plan:: This 60-year-old female admitted with acute hypoxic respiratory failure and COVID-19 1. Acute hypoxic respiratory failure and COVID-19 - Mild improvement overnight Continue dexamethasone 6 mg p.o. daily Continue remdesivir 100 mg IV daily Oxygen to keep sats greater than 92% nurse or RT to titrate as needed I-S and Acapella encouraged Proning encouraged for at least most of the day as tolerated. Combivent every 4 hours as needed dyspnea/wheezing Lovenox 40 mg subcu daily Monitor for development of transaminitis daily with remdesivir dosing Supportive care for COVID-19 Tessalon Perles as needed cough 2. Hypertension -Continue metoprolol and aspirin -Monitor electrolytes daily 3. Hypothyroidism -Continue levothyroxine 4. Chronic pain -Continue oxycodone 10 mg Q6hrs PRN pain VTE prophylaxis: Lovenox GI prophylaxis: Protonix CODE STATUS: Full code Dispo: 2 to 3 days pending improvement.
[2021-03-05] MEDS ORDERED: MULTIVITAMIN PO SCH ×2 (09:00)
[2021-03-05] MEDS: Ibuprofen 400 MG Tab PO PRN ×2 (10:19→20:40)
[2021-03-05] MEDS: REMDESIVIR 100 MG in Sodium Chloride 0.9% 100 ML IV SCH (14:29)
[2021-03-05] MEDS: Enoxaparin 40 MG/0.4 ML Syringe SUBCUT SCH (16:07)
[2021-03-05] MEDS: Albuterol/Ipratropium 4 GM Inhalation Spray INH PRN (17:21)
--- NOTE | 2021-03-05 20:03 | EDM.PDOC ---
ED HPI GENERAL MEDICAL PROBLEM - General Chief Complaint: General Stated Complaint: MIGRAINE VOMITING BODY ACHES Time Seen by Provider: 03/04/21 13:43 Source of Information: Reports: Patient History Limitations: Reports: No Limitations - History of Present Illness INITIAL COMMENTS - FREE TEXT/NARRATIVE: CHIEF COMPLAINT(S): Headache HISTORY OF PRESENT ILLNESS: This is a 60-year-old min with a past medical history of COPD, hypertension, hypothyroidism who presents to the emergency department with a chief complaint of headache. The patient states that for the last 4 days she has been experiencing a frontal and posterior headache which she describes as 5 out of 10 and throbbing. She states that it is constant. She states that she does not have any blurry vision, loss of vision but states that she does have some nausea, vomiting, and diarrhea. She denies any hematemesis, bilious emesis, melena or hematochezia. She states that she cannot do it anymore. She states that she took Tylenol and oxycodone without any relief. In addition to the headache she is experiencing a cough which is nonproductive and denies any shortness of breath. She denies any Covid exposures, sore throat, runny nose. She has not yet received her Covid vaccine. She denies any chest pain. She states that she does not wear oxygen at home. She denies any dysuria, hematuria, vaginal bleeding or vaginal discharge. REVIEW OF SYSTEMS: Constitutional: Denies fever, chills. Eyes: Denies eye pain Ears, Nose, Mouth, & Throat: Denies earache Cardiovascular: Denies chest pain Respiratory: Positive for nonproductive cough. Denies shortness of breath Gastrointestinal: Positive for nausea, vomiting, diarrhea. Denies hematochezia, hematemesis, bilious emesis, melena, abdominal pain genitourinary: Denies hematuria Skin:Denies a rash MSK: Denies joint pain Neurological: Positive for headache. Denies blurred vision, double vision, numbness, tingling, weakness Psychiatric: Denies depression PAST MEDICAL HISTORY: As per history of present illness and as reviewed below otherwise noncontributory. SURGICAL HISTORY: As per history of present illness and as reviewed below otherwise noncontributory. SOCIAL HISTORY: As per history of present illness and as reviewed below otherwise noncontributory. FAMILY HISTORY: As per history of present illness and as reviewed below otherwise noncontributory. EXAMINATION OF ORGAN SYSTEMS/BODY AREAS: Constitutional: Blood pressure was 132/64, heart rate 69, respiratory rate 20 with an oxygen saturation of 88% on room air. Temperature 37.0 General: Overall well-appearing woman who is in no acute distress. Psychiatric: Appropriate mood and affect. Eyes: No scleral icterus or conjunctival erythema ENMT: Moist mucous membranes. No pharyngeal erythema Cardiovascular: Regular, rate, and rhythm. No gallops, murmurs, or rubs. Bilateral upper extremity pulses symmetric and intact. No peripheral edema. No JVD. Respiratory: Lungs clear to auscultation bilaterally. No wheezes, rales, or rhonchi. Speaking in full sentences. Gastrointestinal: Soft, non-tender, non-distended. Normoactive bowel sounds Genitourinary: No suprapubic tenderness Musculoskeletal: Normal range of motion. Skin: No lesions or abrasions. Neurological: AOx4. CN grossly intact. Stregth 5/5 in bilateral upper and lower extremity. Sensation is intact bilaterally in upper and lower extremity. Gait appears normal. MEDICAL DECISION MAKING AND COURSE IN THE ED WITH INTERPRETATION/REVIEW OF DIAGNOSTIC STUDIES: This is a 60-year-old woman with a past medical history of COPD, hypertension who presents to the emergency department with headache, nausea, vomiting, diarrhea and a nonproductive cough who overall appears well but is hypoxic on room air and the patient does not wear any oxygen at home. The patient's lung sounds are clear bilaterally. I do not believe a DuoNeb treatment is indicated. We will obtain labs including CBC, CMP, troponin, and Covid. Will obtain a chest x-ray. Differential does include ACS, pneumonia, Covid pneumonia. We will provide the patient with aspirin by mouth and Toradol for pain relief. EKG did not reveal any acute signs of ischemia. Laboratory: CBC reveals a macrocytosis with a MCV of 101.5 otherwise unremarkable except for her thrombocytopenia at 139. CMP reveals elevated creatinine of 1.2 and hyperglycemia at 126. Troponin is negative. Covid is positive. The radiological images were viewed by myself along with reading the report from the radiologist. Chest x-ray does not reveal any acute cardiopulmonary process. After labs and imaging I did discuss the results with the patient. I discussed with her at this time that I would like to admit her to the hospital given the new requirement of oxygen. She was amenable to this plan. I contacted Dr. Peck who accepted the patient for admission. He did recommend Decadron and remdesivir. I did to start this in the emergency department. DISPOSITION: Patient was admitted to the hospital in stable condition CONDITION: Fair PROCEDURES: None FINAL IMPRESSION(S)/DIAGNOSES: 1. Acute hypoxic respiratory failure requiring nasal cannula 2. Acute COVID-19 infection Deondre Jarrett M.D. headache Pain Score (Numeric/FACES): 3 - Related Data Allergies Allergy/AdvReac Type Severity Reaction Status Date / Time No Known Allergies Allergy Verified 03/04/21 16:37 Home Meds: Home Meds Aspirin 1 tab PO DAILY 09/25/17 [History] Levothyroxine 100 mcg PO ACBREAKFAST 09/25/17 [History] oxyCODONE 10 mg PO Q6H PRN 12/29/17 [History] Acetaminophen [Tylenol Extra Strength] 2 tab PO Q4H PRN 03/04/21 [History] Metoprolol Succinate 50 mg PO DAILY 03/04/21 [History] Multivitamin [One Daily Essential] 1 tab PO DAILY 03/04/21 [History] Past Medical History HEENT History: Reports: None Cardiovascular History: Reports: Hypertension Respiratory History: Reports: COPD Gastrointestinal History: Reports: None Genitourinary History: Reports: None [employer] History: Reports: Musculoskeletal History: Reports: Osteoarthritis, Other (See Below) Neurological History: Reports: None Psychiatric History: Reports: Anxiety, Depression Endocrine/Metabolic History: Reports: Hypothyroidism, Obesity/BMI 30+ Hematologic History: Reports: None Immunologic History: Reports: None Oncologic (Cancer) History: Reports: None Dermatologic History: Reports: None - Infectious Disease History Infectious Disease History: Reports: Chicken Pox - Past Surgical History HEENT Surgical History: Reports: Tonsillectomy Social & Family History - Family History Family Medical History: No Pertinent Family History - Tobacco Use Tobacco Use Status *Q: Never Tobacco User - Caffeine Use Caffeine Use: Reports: Coffee, Tea - Recreational Drug Use Recreational Drug Use: No Drug Use in Last 12 Months: Yes Recreational Drug Type: Reports: Marijuana/Hashish Recreational Drug Use Frequency: Monthly - Living Situation & Occupation Living situation: Reports: with Family ED ROS GENERAL - Review of Systems Review Of Systems: See Below ED EXAM, GENERAL - Physical Exam Exam: See Below GI/Abdominal: Normal Bowel Sounds, Soft, Non-Tender Back Exam: Normal Inspection, Full Range of Motion Extremities: Normal Inspection, Normal Range of Motion, Non-Tender, No Pedal Edema Course - Vital Signs Last Recorded V/S: Last Vital Signs Temp 36.8 C 03/05/21 16:00 Pulse 68 03/05/21 16:00 Resp 18 03/05/21 16:00 BP 116/78 03/05/21 16:00 Pulse Ox 92 L 03/05/21 16:00 - Orders/Labs/Meds Orders: Medication Orders Acetaminophen (Acetaminophen 325 Mg Tab) 650 mg PO Q4H PRN PRN Reason: Pain (Mild 1-3)/fever Last Admin: 03/05/21 08:24 Dose: 650 mg Documented by: Admin: 03/04/21 16:22 Dose: 650 mg Documented by: REFUGIO Albuterol/Ipratropium (Albuterol/Ipratropium 4 Gm Inhalation [place]) 0 gm INH Q4H PRN PRN Reason: Dyspnea Last Admin: 03/05/21 17:21 Dose: 1 puff Documented by: Admin: 03/04/21 19:04 Dose: 1 puff Documented by: TR Aspirin (Aspirin 81 Mg Tab.Chew) 81 mg PO DAILY [facility] Last Admin: 03/05/21 08:25 Dose: 81 mg Documented by: REFUGIO Benzonatate (Benzonatate 100 Mg Cap) 200 mg PO TID PRN PRN Reason: Cough Dexamethasone (Dexamethasone 4 Mg Tab) 6 mg PO DAILY [facility] Stop: 03/13/21 09:01 Last Admin: 03/05/21 08:25 Dose: 6 mg Documented by: REFUGIO Enoxaparin Sodium (Enoxaparin 40 Mg/0.4 Ml Syringe) 40 mg SUBCUT Q24H [facility] Last Admin: 03/05/21 16:07 Dose: 40 mg Documented by: Admin: 03/04/21 16:23 Dose: 40 mg Documented by: REFUGIO Guaifenesin/Codeine Phosphate (Codeine/Guaifenesin 10-100 Mg/5 Ml Syrup 5 Ml Cup) 5 ml PO Q4H PRN PRN Reason: Cough Remdesivir 100 mg/ Sodium (Chloride) 100 mls @ 100 mls/hr IV Q24H [facility] Stop: 03/08/21 15:59 Last Admin: 03/05/21 14:29 Dose: 100 mls/hr Documented by: REFUGIO Ibuprofen (Ibuprofen 400 Mg Tab) 400 mg PO Q6H PRN PRN Reason: Pain (mild 1-3) Last Admin: 03/05/21 10:19 Dose: 400 mg Documented by: REFUGIO Levothyroxine Sodium (Levothyroxine 100 Mcg Tab) 100 mcg PO ACBREAKFAST [facility] Last Admin: 03/05/21 06:34 Dose: 100 mcg Documented by: CINDI Metoprolol Succinate (Metoprolol Succinate 50 Mg Tab.Er) 50 mg PO DAILY [facility] Last Admin: 03/05/21 08:25 Dose: 50 mg Documented by: REFUGIO Multivitamins/Minerals/Vitamin C (Multivitamin Tab) 1 tab PO DAILY [facility] Last Admin: 03/05/21 08:25 Dose: 1 tab Documented by: REFUGIO Ondansetron HCl (Ondansetron 4 Mg/2 Ml Sdv) 4 mg IVPUSH Q4H PRN PRN Reason: Nausea Oxycodone HCl (Oxycodone 5 Mg Tab) 10 mg PO Q6H PRN PRN Reason: Pain Last Admin: 03/05/21 18:31 Dose: 10 mg Documented by: Admin: 03/05/21 12:42 Dose: 10 mg Documented by: Admin: 03/05/21 06:34 Dose: 10 mg Documented by: Admin: 03/05/21 00:35 Dose: 10 mg Documented by: Admin: 03/04/21 18:34 Dose: 10 mg Documented by: REFUGIO Pantoprazole Sodium (Pantoprazole 40 Mg Tab.Cr) 40 mg PO DAILY [facility] Last Admin: 03/05/21 08:25 Dose: 40 mg Documented by: REFUGIO Sodium Chloride (Sodium Chloride 0.9% 2.5 Ml Syringe) 2.5 ml FLUSH ASDIRECTED PRN PRN Reason: Keep Vein Open Labs: Laboratory Tests 03/04/21 03/04/21 03/04/21 Range/Units 13:44 13:44 13:44 WBC 4.36 (4.0-11.0) K/uL RBC 3.99 L (4.30-5.90) M/uL Hgb 13.3 (12.0-16.0) g/dL Hct 40.5 (36.0-46.0) % MCV 101.5 H (80.0-98.0) fL MCH 33.3 H (27.0-32.0) pg MCHC 32.8 (31.0-37.0) g/dL RDW Std Deviation 52.7 (28.0-62.0) fl RDW Coeff of Juju 14 (11.0-15.0) % Plt Count 139 L (150-400) K/uL MPV 11.00 (7.40-12.00) fL Neut % (Auto) 76.3 (48.0-80.0) % Lymph % (Auto) 17.7 (16.0-40.0) % Bibb % (Auto) 5.5 (0.0-15.0) % Eos % (Auto) 0.0 (0.0-7.0) % Baso % (Auto) 0.5 (0.0-1.5) % Neut # (Auto) 3.3 (1.4-5.7) K/uL Lymph # (Auto) 0.8 (0.6-2.4) K/uL Bibb # (Auto) 0.2 (0.0-0.8) K/uL Eos # (Auto) 0.0 (0.0-0.7) K/uL Baso # (Auto) 0.0 (0.0-0.1) K/uL Nucleated RBC % 0.0 /100WBC Nucleated RBCs # 0 K/uL Sodium 138 (136-145) mmol/L Potassium 3.8 (3.5-5.1) mmol/L Chloride 100 (98-107) mmol/L Carbon Dioxide 30.4 (21.0-32.0) mmol/L BUN 18 (7.0-18.0) mg/dL Creatinine 1.2 H (0.6-1.0) mg/dL Est Cr Clr Drug Dosing 36.26 mL/min Estimated GFR (MDRD) 46.0 ml/min Glucose 126 H (74-106) mg/dL Calcium 8.5 (8.5-10.1) mg/dL Total Bilirubin 0.4 (0.2-1.0) mg/dL Direct Bilirubin (0.0-0.5) mg/dL AST 29 (15-37) IU/L ALT 32 (14-63) IU/L Alkaline Phosphatase 74 (46-116) U/L Troponin I < 0.050 (0.000-0.056) ng/mL B-Natriuretic Peptide 29 (<100) PG/ML Total Protein 7.2 (6.4-8.2) g/dL Albumin 3.4 (3.4-5.0) g/dL Globulin 3.8 (2.6-4.0) g/dL Albumin/Globulin Ratio 0.9 (0.9-1.6) SARS-CoV-2 RNA ([facility]IE) (NEGATIVE) 03/04/21 03/04/21 Range/Units 13:44 14:00 WBC (4.0-11.0) K/uL RBC (4.30-5.90) M/uL Hgb (12.0-16.0) g/dL Hct (36.0-46.0) % MCV (80.0-98.0) fL MCH (27.0-32.0) pg MCHC (31.0-37.0) g/dL RDW Std Deviation (28.0-62.0) fl RDW Coeff of Juju (11.0-15.0) % Plt Count (150-400) K/uL MPV (7.40-12.00) fL Neut % (Auto) (48.0-80.0) % Lymph % (Auto) (16.0-40.0) % Bibb % (Auto) (0.0-15.0) % Eos % (Auto) (0.0-7.0) % Baso % (Auto) (0.0-1.5) % Neut # (Auto) (1.4-5.7) K/uL Lymph # (Auto) (0.6-2.4) K/uL Bibb # (Auto) (0.0-0.8) K/uL Eos # (Auto) (0.0-0.7) K/uL Baso # (Auto) (0.0-0.1) K/uL Nucleated RBC % /100WBC Nucleated RBCs # K/uL Sodium (136-145) mmol/L Potassium (3.5-5.1) mmol/L Chloride (98-107) mmol/L Carbon Dioxide (21.0-32.0) mmol/L BUN (7.0-18.0) mg/dL Creatinine (0.6-1.0) mg/dL Est Cr Clr Drug Dosing mL/min Estimated GFR (MDRD) ml/min Glucose (74-106) mg/dL Calcium (8.5-10.1) mg/dL Total Bilirubin (0.2-1.0) mg/dL Direct Bilirubin 0.10 (0.0-0.5) mg/dL AST (15-37) IU/L ALT (14-63) IU/L Alkaline Phosphatase (46-116) U/L Troponin I (0.000-0.056) ng/mL B-Natriuretic Peptide (<100) PG/ML Total Protein (6.4-8.2) g/dL Albumin (3.4-5.0) g/dL Globulin (2.6-4.0) g/dL Albumin/Globulin Ratio (0.9-1.6) SARS-CoV-2 RNA ([facility]ARIE) POSITIVE H (NEGATIVE) Meds: Medications Generic Name Dose Route Start Last Admin Trade Name Freq PRN Reason Stop Dose Admin Acetaminophen 650 mg 03/04/21 15:37 03/05/21 08:24 Acetaminophen 325 Mg Tab PO 650 mg Q4H PRN Administration Pain (Mild 1-3)/fever Albuterol/Ipratropium 0 gm 03/04/21 15:46 03/05/21 17:21 Albuterol/Ipratropium 4 Gm Inhalation [place] INH 1 puff Q4H PRN Administration Dyspnea Aspirin 81 mg 03/05/21 09:00 03/05/21 08:25 Aspirin 81 Mg Tab.Chew PO 81 mg DAILY [facility] Administration Benzonatate 200 mg 03/04/21 15:40 Benzonatate 100 Mg Cap PO TID PRN Cough Dexamethasone 6 mg 03/05/21 09:00 03/05/21 08:25 Dexamethasone 4 Mg Tab PO 03/13/21 09:01 6 mg DAILY [facility] Administration Enoxaparin Sodium 40 mg 03/04/21 15:45 03/05/21 16:07 Enoxaparin 40 Mg/0.4 Ml Syringe SUBCUT 40 mg Q24H [facility] Administration Guaifenesin/Codeine Phosphate 5 ml 05/18/21 15:40 Codeine/Guaifenesin 10-100 Mg/5 Ml Syrup 5 Ml Cup PO Q4H PRN Cough Remdesivir 100 mg/ Sodium 100 mls @ 100 mls/hr 03/05/21 15:00 03/05/21 14:29 Chloride IV 03/08/21 15:59 100 mls/hr Q24H [facility] Administration Ibuprofen 400 mg 03/04/21 15:37 03/05/21 10:19 Ibuprofen 400 Mg Tab PO 400 mg Q6H PRN Administration Pain (mild 1-3) Levothyroxine Sodium 100 mcg 03/05/21 07:30 03/05/21 06:34 Levothyroxine 100 Mcg Tab PO 100 mcg ACBREAKFAST [facility] Administration Metoprolol Succinate 50 mg 03/05/21 09:00 03/05/21 08:25 Metoprolol Succinate 50 Mg Tab.Er PO 50 mg DAILY [facility] Administration Multivitamins/Minerals/Vitamin C 1 tab 03/05/21 09:00 03/05/21 08:25 Multivitamin Tab PO 1 tab DAILY [facility] Administration Ondansetron HCl 4 mg 03/04/21 15:37 Ondansetron 4 Mg/2 Ml Sdv IVPUSH Q4H PRN Nausea Oxycodone HCl 10 mg 03/04/21 15:53 03/05/21 18:31 Oxycodone 5 Mg Tab PO 10 mg Q6H PRN Administration Pain Pantoprazole Sodium 40 mg 03/05/21 09:00 03/05/21 08:25 Pantoprazole 40 Mg Tab.Cr PO 40 mg DAILY [facility] Administration Sodium Chloride 2.5 ml 03/04/21 15:37 Sodium Chloride 0.9% 2.5 Ml Syringe FLUSH ASDIRECTED PRN Keep Vein Open Discontinued Medications Generic Name Dose Route Start Last Admin Trade Name Freq PRN Reason Stop Dose Admin Aspirin 324 mg 03/04/21 13:57 03/04/21 14:36 Aspirin 81 Mg Tab.Chew PO 03/04/21 13:58 324 mg ONETIME ONE Administration Dexamethasone 6 mg 03/04/21 15:01 03/04/21 15:20 Dexamethasone 4 Mg Tab PO 03/04/21 15:02 6 mg ONETIME ONE Administration Remdesivir 200 mg/ Sodium 250 mls @ 250 mls/hr 03/04/21 15:00 03/04/21 16:37 Chloride IV 03/04/21 15:01 Not Given ONETIME ONE Remdesivir 200 mg/ Sodium 250 mls @ 250 mls/hr 03/04/21 15:15 03/04/21 16:36 Chloride IV 03/04/21 16:14 250 mls/hr ONETIME ONE Administration Pantoprazole Sodium 40 mg/ 10 mls @ 300 mls/hr 03/04/21 15:41 03/04/21 16:23 Sodium Chloride IV 03/04/21 15:42 300 mls/hr NOW ONE Administration Ketorolac Tromethamine 15 mg 03/04/21 14:52 03/04/21 15:19 Ketorolac 15 Mg/Ml Sdv IVPUSH 03/04/21 14:53 15 mg ONETIME ONE Administration Oxycodone HCl 10 mg 03/04/21 22:00 Oxycodone Hcl 10 Mg Tablet PO TID [facility] Departure - Departure Time of Disposition: 14:58 Disposition: Admitted As Inpatient 67 Condition: Fair Clinical Impression: COVID-19 - Discharge Information Sepsis Event Note (ED) - Evaluation Sepsis Screening Result: No Definite Risk
[2021-03-06] MEDS: Ibuprofen 400 MG Tab PO PRN (05:48)
[2021-03-06] MEDS: Albuterol/Ipratropium 4 GM Inhalation Spray INH PRN (05:49)
[2021-03-06 06:18] LABS: CARBON DIOXIDE,CO2 32.1 mmol/L (21.0-32.0); POTASSIUM,K 4.3 mmol/L (3.5-5.1)
[2021-03-06] MEDS: oxyCODONE 5 MG Tab PO PRN ×3 (07:10→19:24)
[2021-03-06] MEDS: Levothyroxine 100 MCG Tab PO SCH (07:11)
--- NOTE | 2021-03-06 07:54 | PCM.PN ---
- General Info Date of Service: 03/06/21 Admission Dx/Problem (Free Text): Admission Diagnosis/Problem Admission Diagnosis/Problem acute hypoxic respiratory failure, COVID-19 Subjective Update: Reports headache is significantly better this morning. Feeling better eating and tolerating fluids well. Continues to deny any type of nausea or diarrhea. Continues to have dyspnea on exertion along with cough that she feels is loosening up more. Denies any hemoptysis denies any chest pain. Functional Status: Reports: Pain Controlled, Tolerating Diet, Ambulating, Urinating - Review of Systems General: Reports: Fatigue, Malaise (Improving) HEENT: Reports: No Symptoms. Denies: Headaches, Sore Throat, Visual Changes Pulmonary: Reports: Shortness of Breath, Cough, Sputum (Clear). Denies: Hemoptysis Cardiovascular: Reports: Dyspnea on Exertion Gastrointestinal: Reports: No Symptoms. Denies: Abdominal Pain, Nausea, Vomiting Genitourinary: Reports: No Symptoms. Denies: Dysuria, Frequency Musculoskeletal: Reports: No Symptoms Skin: Reports: No Symptoms Neurological: Reports: No Symptoms Psychiatric: Reports: No Symptoms - Patient Data Vitals - Most Recent: Last Vital Signs Temp 97.6 F 03/06/21 05:00 Pulse 67 03/06/21 05:00 Resp 18 03/06/21 05:00 BP 104/53 L 03/06/21 05:00 Pulse Ox 93 L 03/06/21 05:00 Weight - Most Recent: 116.981 kg I&O - Last 24 Hours: Intake & Output 03/05/21 03/06/21 03/06/21 22:59 06:59 14:59 Intake Total 680 550 Output Total 620 920 Balance 60 -370 Lab Results Last 24 Hours: Laboratory Results - last 24 hr 03/06/21 03/06/21 Range/Units 05:28 05:28 WBC 4.34 (4.0-11.0) K/uL RBC 3.84 L (4.30-5.90) M/uL Hgb 12.8 (12.0-16.0) g/dL Hct 38.7 (36.0-46.0) % MCV 100.8 H (80.0-98.0) fL MCH 33.3 H (27.0-32.0) pg MCHC 33.1 (31.0-37.0) g/dL RDW Std Deviation 52.1 (28.0-62.0) fl RDW Coeff of Juju 14 (11.0-15.0) % Plt Count 150 (150-400) K/uL MPV 11.50 (7.40-12.00) fL Neut % (Auto) 73.3 (48.0-80.0) % Lymph % (Auto) 18.4 (16.0-40.0) % [place] % (Auto) 8.1 (0.0-15.0) % Eos % (Auto) 0.0 (0.0-7.0) % Baso % (Auto) 0.2 (0.0-1.5) % Neut # (Auto) 3.2 (1.4-5.7) K/uL Lymph # (Auto) 0.8 (0.6-2.4) K/uL [place] # (Auto) 0.4 (0.0-0.8) K/uL Eos # (Auto) 0.0 (0.0-0.7) K/uL Baso # (Auto) 0.0 (0.0-0.1) K/uL Nucleated RBC % 0.0 /100WBC Nucleated RBCs # 0 K/uL Sodium 137 (136-145) mmol/L Potassium 4.3 (3.5-5.1) mmol/L Chloride 102 (98-107) mmol/L Carbon Dioxide 32.1 H (21.0-32.0) mmol/L BUN 26 H (7.0-18.0) mg/dL Creatinine 1.2 H (0.6-1.0) mg/dL Est Cr Clr Drug Dosing 36.26 mL/min Estimated GFR (MDRD) 46.0 ml/min Glucose 121 H (74-106) mg/dL Calcium 8.1 L (8.5-10.1) mg/dL Magnesium 2.0 (1.8-2.4) mg/dL Total Bilirubin 0.4 (0.2-1.0) mg/dL AST 27 (15-37) IU/L ALT 31 (14-63) IU/L Alkaline Phosphatase 66 (46-116) U/L Total Protein 6.5 (6.4-8.2) g/dL Albumin 3.0 L (3.4-5.0) g/dL Globulin 3.5 (2.6-4.0) g/dL Albumin/Globulin Ratio 0.9 (0.9-1.6) Med Orders - Current: Current Medications Acetaminophen (Acetaminophen 325 Mg Tab) 650 mg PO Q4H PRN PRN Reason: Pain (Mild 1-3)/fever Last Admin: 03/05/21 23:47 Dose: 650 mg Documented by: Albuterol/Ipratropium (Albuterol/Ipratropium 4 Gm Inhalation [place]) 0 gm INH Q4H PRN PRN Reason: Dyspnea Last Admin: 03/06/21 05:49 Dose: 1 puff Documented by: Aspirin (Aspirin 81 Mg Tab.Chew) 81 mg PO DAILY [facility] Last Admin: 03/05/21 08:25 Dose: 81 mg Documented by: Benzonatate (Benzonatate 100 Mg Cap) 200 mg PO TID PRN PRN Reason: Cough Dexamethasone (Dexamethasone 4 Mg Tab) 6 mg PO DAILY [facility] Stop: 03/13/21 09:01 Last Admin: 03/05/21 08:25 Dose: 6 mg Documented by: Enoxaparin Sodium (Enoxaparin 40 Mg/0.4 Ml Syringe) 40 mg SUBCUT Q24H [facility] Last Admin: 03/05/21 16:07 Dose: 40 mg Documented by: Guaifenesin/Codeine Phosphate (Codeine/Guaifenesin 10-100 Mg/5 Ml Syrup 5 Ml Cup) 5 ml PO Q4H PRN PRN Reason: Cough Last Admin: 03/05/21 20:40 Dose: 5 ml Documented by: Remdesivir 100 mg/ Sodium (Chloride) 100 mls @ 100 mls/hr IV Q24H [facility] Stop: 03/08/21 15:59 Last Admin: 03/05/21 14:29 Dose: 100 mls/hr Documented by: Ibuprofen (Ibuprofen 400 Mg Tab) 400 mg PO Q6H PRN PRN Reason: Pain (mild 1-3) Last Admin: 03/06/21 05:48 Dose: 400 mg Documented by: Levothyroxine Sodium (Levothyroxine 100 Mcg Tab) 100 mcg PO ACBREAKFAST [facility] Last Admin: 03/06/21 07:11 Dose: 100 mcg Documented by: Metoprolol Succinate (Metoprolol Succinate 50 Mg Tab.Er) 50 mg PO DAILY [facility] Last Admin: 03/05/21 08:25 Dose: 50 mg Documented by: Multivitamins/Minerals/Vitamin C (Multivitamin Tab) 1 tab PO DAILY [facility] Last Admin: 03/05/21 08:25 Dose: 1 tab Documented by: Ondansetron HCl (Ondansetron 4 Mg/2 Ml Sdv) 4 mg IVPUSH Q4H PRN PRN Reason: Nausea Oxycodone HCl (Oxycodone 5 Mg Tab) 10 mg PO Q6H PRN PRN Reason: Pain Last Admin: 03/06/21 07:10 Dose: 10 mg Documented by: Pantoprazole Sodium (Pantoprazole 40 Mg Tab.Cr) 40 mg PO DAILY [facility] Last Admin: 03/05/21 08:25 Dose: 40 mg Documented by: Sodium Chloride (Sodium Chloride 0.9% 2.5 Ml Syringe) 2.5 ml FLUSH ASDIRECTED PRN PRN Reason: Keep Vein Open Discontinued Medications Aspirin (Aspirin 81 Mg Tab.Chew) 324 mg PO ONETIME ONE Stop: 03/04/21 13:58 Last Admin: 03/04/21 14:36 Dose: 324 mg Documented by: Dexamethasone (Dexamethasone 4 Mg Tab) 6 mg PO ONETIME ONE Stop: 03/04/21 15:02 Last Admin: 03/04/21 15:20 Dose: 6 mg Documented by: Remdesivir 200 mg/ Sodium (Chloride) 250 mls @ 250 mls/hr IV ONETIME ONE Stop: 03/04/21 15:01 Last Admin: 03/04/21 16:37 Dose: Not Given Documented by: Remdesivir 200 mg/ Sodium (Chloride) 250 mls @ 250 mls/hr IV ONETIME ONE Stop: 03/04/21 16:14 Last Admin: 03/04/21 16:36 Dose: 250 mls/hr Documented by: Pantoprazole Sodium 40 mg/ (Sodium Chloride) 10 mls @ 300 mls/hr IV NOW ONE Stop: 03/04/21 15:42 Last Admin: 03/04/21 16:23 Dose: 300 mls/hr Documented by: Ketorolac Tromethamine (Ketorolac 15 Mg/Ml Sdv) 15 mg IVPUSH ONETIME ONE Stop: 03/04/21 14:53 Last Admin: 03/04/21 15:19 Dose: 15 mg Documented by: Oxycodone HCl (Oxycodone Hcl 10 Mg Tablet) 10 mg PO TID [facility] - Exam Quality Assessment: Supplemental Oxygen (2-1/2 to 3 L), DVT Prophylaxis General: Alert, Oriented, Cooperative, No Acute Distress Lungs: Normal Respiratory Effort (At rest), Crackles (Fine crackles bibasilar), Wheezing (Slight expiratory wheeze noted to right lower base) Cardiovascular: Regular Rate, Regular Rhythm GI/Abdominal Exam: Normal Bowel Sounds, Soft, Non-Tender Back Exam: Normal Inspection, Full Range of Motion Extremities: Normal Inspection, Normal Range of Motion, Non-Tender, No Pedal Edema Skin: Warm, Dry Neurological: No New Focal Deficit Psy/Mental Status: Alert, Normal Affect, Normal Mood - Patient Data Lab Results Last 24 hrs: Laboratory Results - last 24 hr 03/06/21 03/06/21 Range/Units 05:28 05:28 WBC 4.34 (4.0-11.0) K/uL RBC 3.84 L (4.30-5.90) M/uL Hgb 12.8 (12.0-16.0) g/dL Hct 38.7 (36.0-46.0) % MCV 100.8 H (80.0-98.0) fL MCH 33.3 H (27.0-32.0) pg MCHC 33.1 (31.0-37.0) g/dL RDW Std Deviation 52.1 (28.0-62.0) fl RDW Coeff of Juju 14 (11.0-15.0) % Plt Count 150 (150-400) K/uL MPV 11.50 (7.40-12.00) fL Neut % (Auto) 73.3 (48.0-80.0) % Lymph % (Auto) 18.4 (16.0-40.0) % [place] % (Auto) 8.1 (0.0-15.0) % Eos % (Auto) 0.0 (0.0-7.0) % Baso % (Auto) 0.2 (0.0-1.5) % Neut # (Auto) 3.2 (1.4-5.7) K/uL Lymph # (Auto) 0.8 (0.6-2.4) K/uL [place] # (Auto) 0.4 (0.0-0.8) K/uL Eos # (Auto) 0.0 (0.0-0.7) K/uL Baso # (Auto) 0.0 (0.0-0.1) K/uL Nucleated RBC % 0.0 /100WBC Nucleated RBCs # 0 K/uL Sodium 137 (136-145) mmol/L Potassium 4.3 (3.5-5.1) mmol/L Chloride 102 (98-107) mmol/L Carbon Dioxide 32.1 H (21.0-32.0) mmol/L BUN 26 H (7.0-18.0) mg/dL Creatinine 1.2 H (0.6-1.0) mg/dL Est Cr Clr Drug Dosing 36.26 mL/min Estimated GFR (MDRD) 46.0 ml/min Glucose 121 H (74-106) mg/dL Calcium 8.1 L (8.5-10.1) mg/dL Magnesium 2.0 (1.8-2.4) mg/dL Total Bilirubin 0.4 (0.2-1.0) mg/dL AST 27 (15-37) IU/L ALT 31 (14-63) IU/L Alkaline Phosphatase 66 (46-116) U/L Total Protein 6.5 (6.4-8.2) g/dL Albumin 3.0 L (3.4-5.0) g/dL Globulin 3.5 (2.6-4.0) g/dL Albumin/Globulin Ratio 0.9 (0.9-1.6) Result Diagrams: 03/06/21 05:28 03/06/21 05:28 Sepsis Event Note - Evaluation Sepsis Screening Result: No Definite Risk - Focused Exam Vital Signs: Vital Signs Temp Pulse Resp BP Pulse Ox 03/06/21 05:00 97.6 F 67 18 104/53 L 93 L 03/05/21 23:48 97.6 F 76 20 106/52 L 91 L 03/05/21 20:00 97.6 F 64 20 126/49 L 95 - Problem List & Annotations (1) COVID-19 SNOMED Code(s): 620840099 Code(s): U07.1 - COVID-19 Status: Acute Current Visit: Yes (2) Acute respiratory failure with hypoxia SNOMED Code(s): 06416259, 957478147 Code(s): J96.01 - ACUTE RESPIRATORY FAILURE WITH HYPOXIA Status: Acute Current Visit: Yes (3) Hypertension SNOMED Code(s): 17753447 Code(s): I10 - ESSENTIAL (PRIMARY) HYPERTENSION Status: Chronic Current Visit: Yes (4) COPD (chronic obstructive pulmonary disease) SNOMED Code(s): 26642937 Code(s): J44.9 - CHRONIC OBSTRUCTIVE PULMONARY DISEASE, UNSPECIFIED Status: Chronic Current Visit: Yes (5) Hypothyroidism SNOMED Code(s): 85660232 Code(s): E03.9 - HYPOTHYROIDISM, UNSPECIFIED Status: Chronic Current Visit: Yes (6) Obesity SNOMED Code(s): 441044502, 923231693 Code(s): E66.9 - OBESITY, UNSPECIFIED Status: Chronic Current Visit: Yes - Problem List Review Problem List Initiated/Reviewed/Updated: Yes - My Orders Last 24 Hours: My Active Orders 03/05/21 07:30 Levothyroxine [Synthroid] 100 mcg PO ACBREAKFAST 03/05/21 09:00 Aspirin 81 mg PO DAILY Metoprolol Succinate [Toprol XL] 50 mg PO DAILY Pantoprazole [ProTONIX] 40 mg PO DAILY dexAMETHasone 6 mg PO DAILY 03/05/21 Lunch Regular Diet [DIET] 03/05/21 15:00 Remdesivir 100 mg Sodium Chloride 0.9% [Normal Saline] 100 ml IV Q24H 03/07/21 05:11 CBC WITH AUTO DIFF [HEME] AM COMPREHENSIVE METABOLIC PN,CMP [CHEM] AM MAGNESIUM [CHEM] AM 03/08/21 05:11 CBC WITH AUTO DIFF [HEME] AM COMPREHENSIVE METABOLIC PN,CMP [CHEM] AM MAGNESIUM [CHEM] AM - Plan Plan:: This 60-year-old female admitted with acute hypoxic respiratory failure and COVID-19 1. Acute hypoxic respiratory failure and COVID-19 -Headache has improved significantly breathing continues to be difficult with ambulation but otherwise feels she is improving. Continue dexamethasone 6 mg p.o. daily Continue remdesivir 100 mg IV daily Oxygen to keep sats greater than 92% nurse or RT to titrate as needed I-S and Acapella encouraged Proning encouraged for at least most of the day as tolerated. Combivent every 4 hours as needed dyspnea/wheezing Lovenox 40 mg subcu daily Monitor for development of transaminitis daily with remdesivir dosing Supportive care for COVID-19 Tessalon Perles as needed cough 2. Hypertension -Continue metoprolol and aspirin -Monitor electrolytes daily 3. Hypothyroidism -Continue levothyroxine 4. Chronic pain -Continue oxycodone 10 mg Q6hrs PRN pain VTE prophylaxis: Lovenox GI prophylaxis: Protonix CODE STATUS: Full code Dispo: 2 to 3 days pending improvement.
[2021-03-06] MEDS: Dexamethasone 4 MG Tab PO SCH (08:32)
[2021-03-06] MEDS: Multivitamin Tab PO SCH (08:32)
[2021-03-06] MEDS: Metoprolol Succinate 50 MG Tab.ER PO SCH (08:32)
[2021-03-06] MEDS: Pantoprazole 40 MG Tab.CR PO SCH (08:32)
[2021-03-06] MEDS: Aspirin 81 MG Tab.Chew PO SCH (08:32)
[2021-03-06] MEDS: REMDESIVIR 100 MG in Sodium Chloride 0.9% 100 ML IV SCH (15:12)
[2021-03-06] MEDS: Enoxaparin 40 MG/0.4 ML Syringe SUBCUT SCH (15:15)
[2021-03-06] MEDS: Acetaminophen 325 MG Tab PO PRN (19:25)
[2021-03-07] MEDS: oxyCODONE 5 MG Tab PO PRN ×4 (01:02→19:51)
[2021-03-07] MEDS: Acetaminophen 325 MG Tab PO PRN ×4 (01:04→19:52)
[2021-03-07 06:35] LABS: CARBON DIOXIDE,CO2 33.9 mmol/L (21.0-32.0); POTASSIUM,K 4.7 mmol/L (3.5-5.1)
[2021-03-07] MEDS: Levothyroxine 100 MCG Tab PO SCH (07:18)
[2021-03-07] MEDS: Pantoprazole 40 MG Tab.CR PO SCH (08:22)
[2021-03-07] MEDS: Aspirin 81 MG Tab.Chew PO SCH (08:22)
[2021-03-07] MEDS: Metoprolol Succinate 50 MG Tab.ER PO SCH (08:22)
[2021-03-07] MEDS: Multivitamin Tab PO SCH (08:22)
[2021-03-07] MEDS: Dexamethasone 4 MG Tab PO SCH (08:23)
--- NOTE | 2021-03-07 08:24 | PCM.PN ---
- General Info Date of Service: 03/07/21 Admission Dx/Problem (Free Text): Admission Diagnosis/Problem Admission Diagnosis/Problem acute hypoxic respiratory failure, COVID-19 Subjective Update: Continues to feel improved daily. Headache is mild but significantly improved. Continues to have shortness of breath specially with exertion but this is also improving. Continues to be on 2 L oxygen keeping sats at 92%. Reports cough no hemoptysis no chest pain and no palpitations. She is encouraged that she slowly is improving and has hope that she will be discharged in the coming days. Functional Status: Reports: Pain Controlled, Tolerating Diet, Ambulating, Urinating - Review of Systems General: Reports: Malaise (Slowly improving feeling much improved at admission) HEENT: Reports: Headaches (Mild all over throbbing has improved.) Pulmonary: Reports: Shortness of Breath, Cough, Sputum (Clear to yellow). Denies: Hemoptysis, Wheezing Cardiovascular: Reports: Dyspnea on Exertion. Denies: Chest Pain, Palpitations, Lightheadedness Gastrointestinal: Reports: No Symptoms. Denies: Abdominal Pain, Nausea, Vomiting Genitourinary: Reports: No Symptoms. Denies: Dysuria, Frequency Musculoskeletal: Reports: No Symptoms Skin: Reports: No Symptoms Neurological: Reports: No Symptoms Psychiatric: Reports: No Symptoms - Patient Data Vitals - Most Recent: Last Vital Signs Temp 97.8 F 03/07/21 05:40 Pulse 59 L 03/07/21 08:22 Resp 18 03/07/21 05:40 BP 128/52 L 03/07/21 08:22 Pulse Ox 91 L 03/07/21 05:40 Weight - Most Recent: 116.981 kg I&O - Last 24 Hours: Intake & Output 03/06/21 03/07/21 03/07/21 22:59 06:59 14:59 Intake Total 850 900 Output Total 1600 800 Balance -750 100 Lab Results Last 24 Hours: Laboratory Results - last 24 hr 03/07/21 03/07/21 Range/Units 05:50 05:50 WBC 3.92 L (4.0-11.0) K/uL RBC 3.88 L (4.30-5.90) M/uL Hgb 13.0 (12.0-16.0) g/dL Hct 39.6 (36.0-46.0) % MCV 102.1 H (80.0-98.0) fL MCH 33.5 H (27.0-32.0) pg MCHC 32.8 (31.0-37.0) g/dL RDW Std Deviation 52.7 (28.0-62.0) fl RDW Coeff of Juju 14 (11.0-15.0) % Plt Count 157 (150-400) K/uL MPV 11.00 (7.40-12.00) fL Neut % (Auto) 57.4 (48.0-80.0) % Lymph % (Auto) 29.8 (16.0-40.0) % [place] % (Auto) 12.5 (0.0-15.0) % Eos % (Auto) 0.0 (0.0-7.0) % Baso % (Auto) 0.3 (0.0-1.5) % Neut # (Auto) 2.3 (1.4-5.7) K/uL Lymph # (Auto) 1.2 (0.6-2.4) K/uL [place] # (Auto) 0.5 (0.0-0.8) K/uL Eos # (Auto) 0.0 (0.0-0.7) K/uL Baso # (Auto) 0.0 (0.0-0.1) K/uL Nucleated RBC % 0.0 /100WBC Nucleated RBCs # 0 K/uL Sodium 140 (136-145) mmol/L Potassium 4.7 (3.5-5.1) mmol/L Chloride 104 (98-107) mmol/L Carbon Dioxide 33.9 H (21.0-32.0) mmol/L BUN 21 H (7.0-18.0) mg/dL Creatinine 1.0 (0.6-1.0) mg/dL Est Cr Clr Drug Dosing 43.51 mL/min Estimated GFR (MDRD) 56.7 ml/min Glucose 115 H (74-106) mg/dL Calcium 8.2 L (8.5-10.1) mg/dL Magnesium 2.2 (1.8-2.4) mg/dL Total Bilirubin 0.4 (0.2-1.0) mg/dL AST 29 (15-37) IU/L ALT 32 (14-63) IU/L Alkaline Phosphatase 61 (46-116) U/L Total Protein 6.5 (6.4-8.2) g/dL Albumin 3.0 L (3.4-5.0) g/dL Globulin 3.5 (2.6-4.0) g/dL Albumin/Globulin Ratio 0.9 (0.9-1.6) Med Orders - Current: Current Medications Acetaminophen (Acetaminophen 325 Mg Tab) 650 mg PO Q4H PRN PRN Reason: Pain (Mild 1-3)/fever Last Admin: 03/07/21 07:18 Dose: 650 mg Documented by: Albuterol/Ipratropium (Albuterol/Ipratropium 4 Gm Inhalation [place]) 0 gm INH Q4HRRT PRN PRN Reason: Dyspnea Aspirin (Aspirin 81 Mg Tab.Chew) 81 mg PO DAILY [facility] Last Admin: 03/07/21 08:22 Dose: 81 mg Documented by: Benzonatate (Benzonatate 100 Mg Cap) 200 mg PO TID PRN PRN Reason: Cough Dexamethasone (Dexamethasone 4 Mg Tab) 6 mg PO DAILY [facility] Stop: 03/13/21 09:01 Last Admin: 03/07/21 08:23 Dose: 6 mg Documented by: Enoxaparin Sodium (Enoxaparin 40 Mg/0.4 Ml Syringe) 40 mg SUBCUT Q24H [facility] Last Admin: 03/06/21 15:15 Dose: 40 mg Documented by: Guaifenesin/Codeine Phosphate (Codeine/Guaifenesin 10-100 Mg/5 Ml Syrup 5 Ml Cup) 5 ml PO Q4H PRN PRN Reason: Cough Last Admin: 03/05/21 20:40 Dose: 5 ml Documented by: Remdesivir 100 mg/ Sodium (Chloride) 100 mls @ 100 mls/hr IV Q24H [facility] Stop: 03/08/21 15:59 Last Admin: 03/06/21 15:12 Dose: 100 mls/hr Documented by: Levothyroxine Sodium (Levothyroxine 100 Mcg Tab) 100 mcg PO ACBREAKFAST [facility] Last Admin: 03/07/21 07:18 Dose: 100 mcg Documented by: Metoprolol Succinate (Metoprolol Succinate 50 Mg Tab.Er) 50 mg PO DAILY [facility] Last Admin: 03/07/21 08:22 Dose: 50 mg Documented by: Multivitamins/Minerals/Vitamin C (Multivitamin Tab) 1 tab PO DAILY [facility] Last Admin: 03/07/21 08:22 Dose: 1 tab Documented by: Ondansetron HCl (Ondansetron 4 Mg/2 Ml Sdv) 4 mg IVPUSH Q4H PRN PRN Reason: Nausea Oxycodone HCl (Oxycodone 5 Mg Tab) 10 mg PO Q6H PRN PRN Reason: Pain Last Admin: 03/07/21 07:17 Dose: 10 mg Documented by: Pantoprazole Sodium (Pantoprazole 40 Mg Tab.Cr) 40 mg PO DAILY [facility] Last Admin: 03/07/21 08:22 Dose: 40 mg Documented by: Sodium Chloride (Sodium Chloride 0.9% 2.5 Ml Syringe) 2.5 ml FLUSH ASDIRECTED PRN PRN Reason: Keep Vein Open Discontinued Medications Albuterol/Ipratropium (Albuterol/Ipratropium 4 Gm Inhalation [place]) 0 gm INH Q4H PRN PRN Reason: Dyspnea Last Admin: 03/06/21 05:49 Dose: 1 puff Documented by: Aspirin (Aspirin 81 Mg Tab.Chew) 324 mg PO ONETIME ONE Stop: 03/04/21 13:58 Last Admin: 03/04/21 14:36 Dose: 324 mg Documented by: Dexamethasone (Dexamethasone 4 Mg Tab) 6 mg PO ONETIME ONE Stop: 03/04/21 15:02 Last Admin: 03/04/21 15:20 Dose: 6 mg Documented by: Remdesivir 200 mg/ Sodium (Chloride) 250 mls @ 250 mls/hr IV ONETIME ONE Stop: 03/04/21 15:01 Last Admin: 03/04/21 16:37 Dose: Not Given Documented by: Remdesivir 200 mg/ Sodium (Chloride) 250 mls @ 250 mls/hr IV ONETIME ONE Stop: 03/04/21 16:14 Last Admin: 03/04/21 16:36 Dose: 250 mls/hr Documented by: Pantoprazole Sodium 40 mg/ (Sodium Chloride) 10 mls @ 300 mls/hr IV NOW ONE Stop: 03/04/21 15:42 Last Admin: 03/04/21 16:23 Dose: 300 mls/hr Documented by: Ibuprofen (Ibuprofen 400 Mg Tab) 400 mg PO Q6H PRN PRN Reason: Pain (mild 1-3) Last Admin: 03/06/21 05:48 Dose: 400 mg Documented by: Ketorolac Tromethamine (Ketorolac 15 Mg/Ml Sdv) 15 mg IVPUSH ONETIME ONE Stop: 03/04/21 14:53 Last Admin: 03/04/21 15:19 Dose: 15 mg Documented by: Oxycodone HCl (Oxycodone Hcl 10 Mg Tablet) 10 mg PO TID [facility] - Exam Quality Assessment: Supplemental Oxygen (2 L), DVT Prophylaxis General: Alert, Oriented, Cooperative, No Acute Distress Lungs: Rhonchi (Right mid lung), Wheezing (Right middle lung) Cardiovascular: Regular Rate, Regular Rhythm, No Murmurs GI/Abdominal Exam: Normal Bowel Sounds, Soft, Non-Tender Extremities: Normal Inspection, Normal Range of Motion, Non-Tender, No Pedal Edema Skin: Warm, Dry Neurological: No New Focal Deficit Psy/Mental Status: Alert, Normal Affect, Normal Mood - Patient Data Lab Results Last 24 hrs: Laboratory Results - last 24 hr 03/07/21 03/07/21 Range/Units 05:50 05:50 WBC 3.92 L (4.0-11.0) K/uL RBC 3.88 L (4.30-5.90) M/uL Hgb 13.0 (12.0-16.0) g/dL Hct 39.6 (36.0-46.0) % MCV 102.1 H (80.0-98.0) fL MCH 33.5 H (27.0-32.0) pg MCHC 32.8 (31.0-37.0) g/dL RDW Std Deviation 52.7 (28.0-62.0) fl RDW Coeff of Juju 14 (11.0-15.0) % Plt Count 157 (150-400) K/uL MPV 11.00 (7.40-12.00) fL Neut % (Auto) 57.4 (48.0-80.0) % Lymph % (Auto) 29.8 (16.0-40.0) % [place] % (Auto) 12.5 (0.0-15.0) % Eos % (Auto) 0.0 (0.0-7.0) % Baso % (Auto) 0.3 (0.0-1.5) % Neut # (Auto) 2.3 (1.4-5.7) K/uL Lymph # (Auto) 1.2 (0.6-2.4) K/uL [place] # (Auto) 0.5 (0.0-0.8) K/uL Eos # (Auto) 0.0 (0.0-0.7) K/uL Baso # (Auto) 0.0 (0.0-0.1) K/uL Nucleated RBC % 0.0 /100WBC Nucleated RBCs # 0 K/uL Sodium 140 (136-145) mmol/L Potassium 4.7 (3.5-5.1) mmol/L Chloride 104 (98-107) mmol/L Carbon Dioxide 33.9 H (21.0-32.0) mmol/L BUN 21 H (7.0-18.0) mg/dL Creatinine 1.0 (0.6-1.0) mg/dL Est Cr Clr Drug Dosing 43.51 mL/min Estimated GFR (MDRD) 56.7 ml/min Glucose 115 H (74-106) mg/dL Calcium 8.2 L (8.5-10.1) mg/dL Magnesium 2.2 (1.8-2.4) mg/dL Total Bilirubin 0.4 (0.2-1.0) mg/dL AST 29 (15-37) IU/L ALT 32 (14-63) IU/L Alkaline Phosphatase 61 (46-116) U/L Total Protein 6.5 (6.4-8.2) g/dL Albumin 3.0 L (3.4-5.0) g/dL Globulin 3.5 (2.6-4.0) g/dL Albumin/Globulin Ratio 0.9 (0.9-1.6) Result Diagrams: 03/07/21 05:50 03/07/21 05:50 Sepsis Event Note - Evaluation Sepsis Screening Result: No Definite Risk - Focused Exam Vital Signs: Vital Signs Temp Pulse Pulse Resp BP BP Pulse Ox 03/07/21 08:22 59 L 128/52 L 03/07/21 05:40 97.8 F 56 L 18 119/44 L 91 L 03/07/21 01:00 98.2 F 58 L 20 114/53 L 93 L - Problem List & Annotations (1) COVID-19 SNOMED Code(s): 212788715 Code(s): U07.1 - COVID-19 Status: Acute Current Visit: Yes (2) Acute respiratory failure with hypoxia SNOMED Code(s): 59134312, 154848172 Code(s): J96.01 - ACUTE RESPIRATORY FAILURE WITH HYPOXIA Status: Acute Current Visit: Yes (3) Hypertension SNOMED Code(s): 38057324 Code(s): I10 - ESSENTIAL (PRIMARY) HYPERTENSION Status: Chronic Current Visit: Yes (4) COPD (chronic obstructive pulmonary disease) SNOMED Code(s): 70493082 Code(s): J44.9 - CHRONIC OBSTRUCTIVE PULMONARY DISEASE, UNSPECIFIED Status: Chronic Current Visit: Yes (5) Hypothyroidism SNOMED Code(s): 06229868 Code(s): E03.9 - HYPOTHYROIDISM, UNSPECIFIED Status: Chronic Current Visit: Yes (6) Obesity SNOMED Code(s): 002974882, 128394966 Code(s): E66.9 - OBESITY, UNSPECIFIED Status: Chronic Current Visit: Yes - Problem List Review Problem List Initiated/Reviewed/Updated: Yes - My Orders Last 24 Hours: My Active Orders 03/07/21 06:00 Albuterol/Ipratropium [Combivent Respimat] 0 gm INH Q4HRRT PRN 03/08/21 05:11 CBC WITH AUTO DIFF [HEME] AM COMPREHENSIVE METABOLIC PN,CMP [CHEM] AM MAGNESIUM [CHEM] AM - Plan Plan:: This 60-year-old female admitted with acute hypoxic respiratory failure and COVID-19 1. Acute hypoxic respiratory failure and COVID-19 -Steady improvement daily. Continue dexamethasone 6 mg p.o. daily Continue remdesivir 100 mg IV daily, day 3 of 4 today Oxygen to keep sats greater than 92% nurse or RT to titrate as needed I-S and Acapella encouraged Proning encouraged for at least most of the day as tolerated. Combivent every 4 hours as needed dyspnea/wheezing Lovenox 40 mg subcu daily Monitor for development of transaminitis daily with remdesivir dosing Supportive care for COVID-19 Tessalon Perles as needed cough 2. Hypertension -Continue metoprolol and aspirin -Monitor electrolytes daily 3. Hypothyroidism -Continue levothyroxine 4. Chronic pain -Continue oxycodone 10 mg Q6hrs PRN pain VTE prophylaxis: Lovenox GI prophylaxis: Protonix CODE STATUS: Full code Dispo: 2 to 3 days pending improvement.
[2021-03-07] MEDS: Albuterol/Ipratropium 4 GM Inhalation Spray INH PRN (12:54)
[2021-03-07] MEDS: REMDESIVIR 100 MG in Sodium Chloride 0.9% 100 ML IV SCH (15:49)
[2021-03-07] MEDS: Enoxaparin 40 MG/0.4 ML Syringe SUBCUT SCH (16:12)
[2021-03-08] MEDS: oxyCODONE 5 MG Tab PO PRN ×4 (03:05→21:06)
[2021-03-08] MEDS: Acetaminophen 325 MG Tab PO PRN (03:05)
[2021-03-08] MEDS: Levothyroxine 100 MCG Tab PO SCH (06:34)
[2021-03-08 06:42] LABS: CARBON DIOXIDE,CO2 32.6 mmol/L (21.0-32.0); POTASSIUM,K 5.1 mmol/L (3.5-5.1)
[2021-03-08] MEDS: Aspirin 81 MG Tab.Chew PO SCH (08:31)
[2021-03-08] MEDS: Pantoprazole 40 MG Tab.CR PO SCH (08:31)
[2021-03-08] MEDS: Dexamethasone 4 MG Tab PO SCH (08:31)
[2021-03-08] MEDS: Multivitamin Tab PO SCH (08:31)
[2021-03-08] MEDS: Albuterol/Ipratropium 4 GM Inhalation Spray INH PRN (09:14)
[2021-03-08] MEDS: Metoprolol Succinate 50 MG Tab.ER PO SCH (10:51)
--- NOTE | 2021-03-08 14:45 | PCM.PN ---
- General Info Date of Service: 03/08/21 - Review of Systems Systems Review Comment:: feeling better, breathing has improvec - Patient Data Vitals - Most Recent: Last Vital Signs Temp 36.2 C 03/08/21 12:00 Pulse 53 L 03/08/21 10:51 Resp 18 03/08/21 12:00 BP 126/53 L 03/08/21 12:00 Pulse Ox 91 L 03/08/21 12:00 Weight - Most Recent: 116.981 kg I&O - Last 24 Hours: Intake & Output 03/07/21 03/08/21 03/08/21 22:59 06:59 14:59 Intake Total 1100 980 Output Total 800 600 Balance 300 380 Lab Results Last 24 Hours: Laboratory Results - last 24 hr 03/08/21 03/08/21 Range/Units 05:45 05:45 WBC 4.10 (4.0-11.0) K/uL RBC 3.80 L (4.30-5.90) M/uL Hgb 12.7 (12.0-16.0) g/dL Hct 38.6 (36.0-46.0) % MCV 101.6 H (80.0-98.0) fL MCH 33.4 H (27.0-32.0) pg MCHC 32.9 (31.0-37.0) g/dL RDW Std Deviation 51.2 (28.0-62.0) fl RDW Coeff of Juju 14 (11.0-15.0) % Plt Count 182 (150-400) K/uL MPV 11.10 (7.40-12.00) fL Add Manual Diff YES Neutrophils % (Manual) 60 (48.0-80.0) % Band Neutrophils % 2 % Lymphocytes % (Manual) 30 (16.0-40.0) % Monocytes % (Manual) 8 (0.0-15.0) % Nucleated RBC % 0.0 /100WBC Absolute Seg Neuts 2.5 (1.4-5.7) Band Neutrophils # 0.1 Lymphocytes # (Manual) 1.2 (0.6-2.4) Monocytes # (Manual) 0.3 (0.0-0.8) Nucleated RBCs # 0 K/uL Sodium 136 (136-145) mmol/L Potassium 5.1 (3.5-5.1) mmol/L Chloride 102 (98-107) mmol/L Carbon Dioxide 32.6 H (21.0-32.0) mmol/L BUN 25 H (7.0-18.0) mg/dL Creatinine 1.0 (0.6-1.0) mg/dL Est Cr Clr Drug Dosing 43.51 mL/min Estimated GFR (MDRD) 56.7 ml/min Glucose 163 H (74-106) mg/dL Calcium 8.2 L (8.5-10.1) mg/dL Magnesium 2.2 (1.8-2.4) mg/dL Total Bilirubin 0.3 (0.2-1.0) mg/dL AST 27 (15-37) IU/L ALT 38 (14-63) IU/L Alkaline Phosphatase 57 (46-116) U/L Total Protein 6.2 L (6.4-8.2) g/dL Albumin 2.9 L (3.4-5.0) g/dL Globulin 3.3 (2.6-4.0) g/dL Albumin/Globulin Ratio 0.9 (0.9-1.6) Med Orders - Current: Current Medications Acetaminophen (Acetaminophen 325 Mg Tab) 650 mg PO Q4H PRN PRN Reason: Pain (Mild 1-3)/fever Last Admin: 03/08/21 03:05 Dose: 650 mg Documented by: Albuterol/Ipratropium (Albuterol/Ipratropium 4 Gm Inhalation [place]) 0 gm INH Q4HRRT PRN PRN Reason: Dyspnea Last Admin: 03/08/21 09:14 Dose: 1 puff Documented by: Aspirin (Aspirin 81 Mg Tab.Chew) 81 mg PO DAILY [facility] Last Admin: 03/08/21 08:31 Dose: 81 mg Documented by: Benzonatate (Benzonatate 100 Mg Cap) 200 mg PO TID PRN PRN Reason: Cough Dexamethasone (Dexamethasone 4 Mg Tab) 6 mg PO DAILY [facility] Stop: 03/13/21 09:01 Last Admin: 03/08/21 08:31 Dose: 6 mg Documented by: Enoxaparin Sodium (Enoxaparin 40 Mg/0.4 Ml Syringe) 40 mg SUBCUT Q24H [facility] Last Admin: 03/07/21 16:12 Dose: 40 mg Documented by: Guaifenesin/Codeine Phosphate (Codeine/Guaifenesin 10-100 Mg/5 Ml Syrup 5 Ml Cup) 5 ml PO Q4H PRN PRN Reason: Cough Last Admin: 03/05/21 20:40 Dose: 5 ml Documented by: Remdesivir 100 mg/ Sodium (Chloride) 100 mls @ 100 mls/hr IV Q24H [facility] Stop: 03/08/21 15:59 Last Admin: 03/07/21 15:49 Dose: 100 mls/hr Documented by: Levothyroxine Sodium (Levothyroxine 100 Mcg Tab) 100 mcg PO ACBREAKFAST [facility] Last Admin: 03/08/21 06:34 Dose: 100 mcg Documented by: Metoprolol Succinate (Metoprolol Succinate 50 Mg Tab.Er) 50 mg PO DAILY [facility] Last Admin: 03/08/21 10:51 Dose: Not Given Documented by: Multivitamins/Minerals/Vitamin C (Multivitamin Tab) 1 tab PO DAILY [facility] Last Admin: 03/08/21 08:31 Dose: 1 tab Documented by: Ondansetron HCl (Ondansetron 4 Mg/2 Ml Sdv) 4 mg IVPUSH Q4H PRN PRN Reason: Nausea Oxycodone HCl (Oxycodone 5 Mg Tab) 10 mg PO Q6H PRN PRN Reason: Pain Last Admin: 03/08/21 09:14 Dose: 10 mg Documented by: Pantoprazole Sodium (Pantoprazole 40 Mg Tab.Cr) 40 mg PO DAILY [facility] Last Admin: 03/08/21 08:31 Dose: 40 mg Documented by: Sodium Chloride (Sodium Chloride 0.9% 2.5 Ml Syringe) 2.5 ml FLUSH ASDIRECTED PRN PRN Reason: Keep Vein Open Discontinued Medications Albuterol/Ipratropium (Albuterol/Ipratropium 4 Gm Inhalation [place]) 0 gm INH Q4H PRN PRN Reason: Dyspnea Last Admin: 03/06/21 05:49 Dose: 1 puff Documented by: Aspirin (Aspirin 81 Mg Tab.Chew) 324 mg PO ONETIME ONE Stop: 03/04/21 13:58 Last Admin: 03/04/21 14:36 Dose: 324 mg Documented by: Dexamethasone (Dexamethasone 4 Mg Tab) 6 mg PO ONETIME ONE Stop: 03/04/21 15:02 Last Admin: 03/04/21 15:20 Dose: 6 mg Documented by: Remdesivir 200 mg/ Sodium (Chloride) 250 mls @ 250 mls/hr IV ONETIME ONE Stop: 03/04/21 15:01 Last Admin: 03/04/21 16:37 Dose: Not Given Documented by: Remdesivir 200 mg/ Sodium (Chloride) 250 mls @ 250 mls/hr IV ONETIME ONE Stop: 03/04/21 16:14 Last Admin: 03/04/21 16:36 Dose: 250 mls/hr Documented by: Pantoprazole Sodium 40 mg/ (Sodium Chloride) 10 mls @ 300 mls/hr IV NOW ONE Stop: 03/04/21 15:42 Last Admin: 03/04/21 16:23 Dose: 300 mls/hr Documented by: Ibuprofen (Ibuprofen 400 Mg Tab) 400 mg PO Q6H PRN PRN Reason: Pain (mild 1-3) Last Admin: 03/06/21 05:48 Dose: 400 mg Documented by: Ketorolac Tromethamine (Ketorolac 15 Mg/Ml Sdv) 15 mg IVPUSH ONETIME ONE Stop: 03/04/21 14:53 Last Admin: 03/04/21 15:19 Dose: 15 mg Documented by: Oxycodone HCl (Oxycodone Hcl 10 Mg Tablet) 10 mg PO TID [facility] - Exam General: Alert, Oriented Neck: Supple Lungs: Normal Respiratory Effort, Rhonchi Cardiovascular: Regular Rate, Regular Rhythm GI/Abdominal Exam: Soft, Non-Tender, No Distention Extremities: Non-Tender, No Pedal Edema Skin: Warm, Dry, Intact - Patient Data Lab Results Last 24 hrs: Laboratory Results - last 24 hr 03/08/21 03/08/21 Range/Units 05:45 05:45 WBC 4.10 (4.0-11.0) K/uL RBC 3.80 L (4.30-5.90) M/uL Hgb 12.7 (12.0-16.0) g/dL Hct 38.6 (36.0-46.0) % MCV 101.6 H (80.0-98.0) fL MCH 33.4 H (27.0-32.0) pg MCHC 32.9 (31.0-37.0) g/dL RDW Std Deviation 51.2 (28.0-62.0) fl RDW Coeff of Juju 14 (11.0-15.0) % Plt Count 182 (150-400) K/uL MPV 11.10 (7.40-12.00) fL Add Manual Diff YES Neutrophils % (Manual) 60 (48.0-80.0) % Band Neutrophils % 2 % Lymphocytes % (Manual) 30 (16.0-40.0) % Monocytes % (Manual) 8 (0.0-15.0) % Nucleated RBC % 0.0 /100WBC Absolute Seg Neuts 2.5 (1.4-5.7) Band Neutrophils # 0.1 Lymphocytes # (Manual) 1.2 (0.6-2.4) Monocytes # (Manual) 0.3 (0.0-0.8) Nucleated RBCs # 0 K/uL Sodium 136 (136-145) mmol/L Potassium 5.1 (3.5-5.1) mmol/L Chloride 102 (98-107) mmol/L Carbon Dioxide 32.6 H (21.0-32.0) mmol/L BUN 25 H (7.0-18.0) mg/dL Creatinine 1.0 (0.6-1.0) mg/dL Est Cr Clr Drug Dosing 43.51 mL/min Estimated GFR (MDRD) 56.7 ml/min Glucose 163 H (74-106) mg/dL Calcium 8.2 L (8.5-10.1) mg/dL Magnesium 2.2 (1.8-2.4) mg/dL Total Bilirubin 0.3 (0.2-1.0) mg/dL AST 27 (15-37) IU/L ALT 38 (14-63) IU/L Alkaline Phosphatase 57 (46-116) U/L Total Protein 6.2 L (6.4-8.2) g/dL Albumin 2.9 L (3.4-5.0) g/dL Globulin 3.3 (2.6-4.0) g/dL Albumin/Globulin Ratio 0.9 (0.9-1.6) Result Diagrams: 03/08/21 05:45 03/08/21 05:45 Sepsis Event Note - Evaluation Sepsis Screening Result: No Definite Risk - Focused Exam Vital Signs: Vital Signs Temp Pulse Pulse Resp BP BP Pulse Ox 03/08/21 12:00 36.2 C 18 126/53 L 91 L 03/08/21 10:51 53 L 108/52 L 03/08/21 09:00 03/08/21 07:56 35.8 C L 18 108/62 92 L 03/08/21 03:17 36.2 C 58 L 19 128/76 94 L Pulse Ox 03/08/21 12:00 03/08/21 10:51 03/08/21 09:00 92 L 03/08/21 07:56 03/08/21 03:17 - Problem List Review Problem List Initiated/Reviewed/Updated: Yes - My Orders Last 24 Hours: My Active Orders 03/09/21 05:11 CBC WITH AUTO DIFF [HEME] AM COMPREHENSIVE METABOLIC PN,CMP [CHEM] AM - Plan Plan:: This 60-year-old female admitted with acute hypoxic respiratory failure and COVID-19 1. Acute hypoxic respiratory failure and COVID-19 Continue dexamethasone 6 mg p.o. daily Continue remdesivir 100 mg IV daily, day 4 of 4 today Oxygen to keep sats greater than 92% nurse or RT to titrate as needed currently on 2 L NC I-S and Acapella encouraged Proning encouraged for at least most of the day as tolerated. Combivent every 4 hours as needed dyspnea/wheezing Lovenox 40 mg subcu daily Monitor for development of transaminitis daily with remdesivir dosing Supportive care for COVID-19 Tessalon Perles as needed cough 2. Hypertension -Continue metoprolol and aspirin -Monitor electrolytes daily 3. Hypothyroidism -Continue levothyroxine 4. Chronic pain -Continue oxycodone 10 mg Q6hrs PRN pain VTE prophylaxis: Lovenox GI prophylaxis: Protonix CODE STATUS: Full code Dispo: 1 to 2 days pending improvement.
[2021-03-08] MEDS: Enoxaparin 40 MG/0.4 ML Syringe SUBCUT SCH (14:56)
[2021-03-08] MEDS: REMDESIVIR 100 MG in Sodium Chloride 0.9% 100 ML IV SCH (14:58)
[2021-03-09] MEDS: oxyCODONE 5 MG Tab PO PRN ×2 (03:22→09:49)
[2021-03-09] MEDS: Albuterol/Ipratropium 4 GM Inhalation Spray INH PRN (03:26)
[2021-03-09 07:04] LABS: CARBON DIOXIDE,CO2 30.7 mmol/L (21.0-32.0); POTASSIUM,K 5.2 mmol/L (3.5-5.1)
[2021-03-09] MEDS: Levothyroxine 100 MCG Tab PO SCH (07:58)
[2021-03-09 08:07] VITALS: BP 134/71
[2021-03-09] MEDS: Metoprolol Succinate 50 MG Tab.ER PO SCH (08:20)
[2021-03-09] MEDS: Pantoprazole 40 MG Tab.CR PO SCH (08:20)
[2021-03-09] MEDS: Aspirin 81 MG Tab.Chew PO SCH (08:21)
[2021-03-09] MEDS: Multivitamin Tab PO SCH (08:21)
[2021-03-09] MEDS: Dexamethasone 4 MG Tab PO SCH (08:21)
[2021-03-09 08:22] VITALS: PULSE 57
--- NOTE | 2021-03-09 12:30 | PCM.DCSUM1 ---
Discharge Summary - Discharge Data Discharge Date: 03/09/21 Discharge Disposition: Home, Self-Care 01 Condition: Good - Referral to Home Health Primary Care Physician: Genie Garcia NP - Patient Summary/Data Consults: Consultations 03/04/21 15:37 Respiratory Care Assess and Treatment [CONS] Routine Hospital Course: 60-year-old female with past medical history of COPD, hypertension, hypothyroidism anxiety and depression who was admitted for COVID pneumona with acute hypoxic respiratory failure. Patient presented to the ER with complaints of fevers chills, exertional dyspnea, diarrhea and headache. In the ER no leukocytosis noted hemoglobin 13.3 hematocrit 40.5 platelet count 139,000. Sodium 138 potassium 3.8. BUN 18 creatinine 1.2 glucose 126. AST ALT total bilirubin within normal limits troponin negative she was found to be Covid positive. Chest x-ray negative. Vital signs on arrival reveal temperature 98.6 pulse rate 69 blood pressure 132/63 respiratory rate 20 but noted to be hypoxic at 85% on room air. She was treated with supplemental oxygen via NC and dexamethasone plus five days of Remdesivir. She had improvement in her symptoms and last night she was weaned off her oxygen. She is requesting discharge. She was discharged home to have follow up with her PCP. - Patient Instructions Diet: Usual Diet as Tolerated Activity: As Tolerated Notify Provider of: Fever, Increased Pain, Nausea and/or Vomiting - Discharge Plan Home Medications: Home Meds Aspirin 1 tab PO DAILY 09/25/17 [History] Levothyroxine 100 mcg PO ACBREAKFAST 09/25/17 [History] oxyCODONE 10 mg PO Q6H PRN 12/29/17 [History] Acetaminophen [Tylenol Extra Strength] 2 tab PO Q4H PRN 03/04/21 [History] Metoprolol Succinate 50 mg PO DAILY 03/04/21 [History] Multivitamin [One Daily Essential] 1 tab PO DAILY 03/04/21 [History] Patient Handouts: COVID-19 Frequently Asked Questions, COVID-19 Vaccine Information, What You Should Know About COVID-19 to Protect Yourself and Others - CDC, COVID-19: How to Protect Yourself and Others - CDC, How to Safely Wear and Take Off a Mask - CDC, COVID-19: Quarantine vs. Isolation - CDC, Prevent the Spread of COVID-19 if You Are Sick - [facility] [place] Referrals: Genie Garcia, [facility] [Primary Care Provider] - 03/19/21 11:00 am (Call clinic to reschedule follow-up appointment to March 25 or onwards.Please arrive 15mins early, bring ID, insurance info and own mask.) - Discharge Summary/Plan Comment DC Time >30 min.: No - Patient Data Vitals - Most Recent: Last Vital Signs Temp 36.1 C 03/09/21 08:00 Pulse 57 L 03/09/21 08:20 Resp 19 03/09/21 08:00 BP 134/71 03/09/21 08:20 Pulse Ox 91 L 03/09/21 08:00 Weight - Most Recent: 116.981 kg I&O - Last 24 hours: Intake & Output 03/08/21 03/09/21 03/09/21 22:59 06:59 14:59 Intake Total 1400 952 Output Total 850 925 Balance 550 27 Lab Results - Last 24 hrs: Laboratory Results - last 24 hr 03/09/21 03/09/21 Range/Units 06:18 06:18 WBC 6.39 (4.0-11.0) K/uL RBC 3.94 L (4.30-5.90) M/uL Hgb 13.1 (12.0-16.0) g/dL Hct 39.3 (36.0-46.0) % MCV 99.7 H (80.0-98.0) fL MCH 33.2 H (27.0-32.0) pg MCHC 33.3 (31.0-37.0) g/dL RDW Std Deviation 50.6 (28.0-62.0) fl RDW Coeff of Juju 14 (11.0-15.0) % Plt Count 213 (150-400) K/uL MPV 11.40 (7.40-12.00) fL Add Manual Diff YES Neutrophils % (Manual) 57 (48.0-80.0) % Band Neutrophils % 2 % Lymphocytes % (Manual) 34 (16.0-40.0) % Monocytes % (Manual) 7 (0.0-15.0) % Nucleated RBC % 0.0 /100WBC Absolute Seg Neuts 3.6 (1.4-5.7) Band Neutrophils # 0.1 Lymphocytes # (Manual) 2.2 (0.6-2.4) Monocytes # (Manual) 0.4 (0.0-0.8) Nucleated RBCs # 0 K/uL Sodium 138 (136-145) mmol/L Potassium 5.2 H (3.5-5.1) mmol/L Chloride 101 (98-107) mmol/L Carbon Dioxide 30.7 (21.0-32.0) mmol/L BUN 23 H (7.0-18.0) mg/dL Creatinine 1.0 (0.6-1.0) mg/dL Est Cr Clr Drug Dosing 43.51 mL/min Estimated GFR (MDRD) 56.7 ml/min Glucose 127 H (74-106) mg/dL Calcium 8.7 (8.5-10.1) mg/dL Total Bilirubin 0.3 (0.2-1.0) mg/dL AST 39 H (15-37) IU/L ALT 49 (14-63) IU/L Alkaline Phosphatase 58 (46-116) U/L Total Protein 6.4 (6.4-8.2) g/dL Albumin 3.0 L (3.4-5.0) g/dL Globulin 3.4 (2.6-4.0) g/dL Albumin/Globulin Ratio 0.9 (0.9-1.6) Med Orders - Current: Current Medications Acetaminophen (Acetaminophen 325 Mg Tab) 650 mg PO Q4H PRN PRN Reason: Pain (Mild 1-3)/fever Last Admin: 03/08/21 03:05 Dose: 650 mg Documented by: Albuterol/Ipratropium (Albuterol/Ipratropium 4 Gm Inhalation [place]) 0 gm INH Q4HRRT PRN PRN Reason: Dyspnea Last Admin: 03/09/21 03:26 Dose: 1 puff Documented by: Aspirin (Aspirin 81 Mg Tab.Chew) 81 mg PO DAILY [facility] Last Admin: 03/09/21 08:21 Dose: 81 mg Documented by: Benzonatate (Benzonatate 100 Mg Cap) 200 mg PO TID PRN PRN Reason: Cough Dexamethasone (Dexamethasone 4 Mg Tab) 6 mg PO DAILY [facility] Stop: 03/13/21 09:01 Last Admin: 03/09/21 08:21 Dose: 6 mg Documented by: Enoxaparin Sodium (Enoxaparin 40 Mg/0.4 Ml Syringe) 40 mg SUBCUT Q24H [facility] Last Admin: 03/08/21 14:56 Dose: 40 mg Documented by: Guaifenesin/Codeine Phosphate (Codeine/Guaifenesin 10-100 Mg/5 Ml Syrup 5 Ml Cup) 5 ml PO Q4H PRN PRN Reason: Cough Last Admin: 03/05/21 20:40 Dose: 5 ml Documented by: Levothyroxine Sodium (Levothyroxine 100 Mcg Tab) 100 mcg PO ACBREAKFAST [facility] Last Admin: 03/09/21 07:58 Dose: 100 mcg Documented by: Metoprolol Succinate (Metoprolol Succinate 50 Mg Tab.Er) 50 mg PO DAILY [facility] Last Admin: 03/09/21 08:20 Dose: 50 mg Documented by: Multivitamins/Minerals/Vitamin C (Multivitamin Tab) 1 tab PO DAILY [facility] Last Admin: 03/09/21 08:21 Dose: 1 tab Documented by: Ondansetron HCl (Ondansetron 4 Mg/2 Ml Sdv) 4 mg IVPUSH Q4H PRN PRN Reason: Nausea Oxycodone HCl (Oxycodone 5 Mg Tab) 10 mg PO Q6H PRN PRN Reason: Pain Last Admin: 03/09/21 09:49 Dose: 10 mg Documented by: Pantoprazole Sodium (Pantoprazole 40 Mg Tab.Cr) 40 mg PO DAILY [facility] Last Admin: 03/09/21 08:20 Dose: 40 mg Documented by: Sodium Chloride (Sodium Chloride 0.9% 2.5 Ml Syringe) 2.5 ml FLUSH ASDIRECTED PRN PRN Reason: Keep Vein Open Discontinued Medications Albuterol/Ipratropium (Albuterol/Ipratropium 4 Gm Inhalation [place]) 0 gm INH Q4H PRN PRN Reason: Dyspnea Last Admin: 03/06/21 05:49 Dose: 1 puff Documented by: Aspirin (Aspirin 81 Mg Tab.Chew) 324 mg PO ONETIME ONE Stop: 03/04/21 13:58 Last Admin: 03/04/21 14:36 Dose: 324 mg Documented by: Dexamethasone (Dexamethasone 4 Mg Tab) 6 mg PO ONETIME ONE Stop: 03/04/21 15:02 Last Admin: 03/04/21 15:20 Dose: 6 mg Documented by: Remdesivir 200 mg/ Sodium (Chloride) 250 mls @ 250 mls/hr IV ONETIME ONE Stop: 03/04/21 15:01 Last Admin: 03/04/21 16:37 Dose: Not Given Documented by: Remdesivir 200 mg/ Sodium (Chloride) 250 mls @ 250 mls/hr IV ONETIME ONE Stop: 03/04/21 16:14 Last Admin: 03/04/21 16:36 Dose: 250 mls/hr Documented by: Remdesivir 100 mg/ Sodium (Chloride) 100 mls @ 100 mls/hr IV Q24H [facility] Stop: 03/08/21 15:59 Last Admin: 03/08/21 14:58 Dose: 100 mls/hr Documented by: Pantoprazole Sodium 40 mg/ (Sodium Chloride) 10 mls @ 300 mls/hr IV NOW ONE Stop: 03/04/21 15:42 Last Admin: 03/04/21 16:23 Dose: 300 mls/hr Documented by: Ibuprofen (Ibuprofen 400 Mg Tab) 400 mg PO Q6H PRN PRN Reason: Pain (mild 1-3) Last Admin: 03/06/21 05:48 Dose: 400 mg Documented by: Ketorolac Tromethamine (Ketorolac 15 Mg/Ml Sdv) 15 mg IVPUSH ONETIME ONE Stop: 03/04/21 14:53 Last Admin: 03/04/21 15:19 Dose: 15 mg Documented by: Oxycodone HCl (Oxycodone Hcl 10 Mg Tablet) 10 mg PO TID [facility]
== END 2021-03-09 13:00 | disposition home or self-care (01) | DRG 177 ==
LOC: MW.ED 12:20 → MW.MS 14:58 → MW.ICU 03-05 17:01
PROVIDERS: ADMIT Internal Medicine; ATTEND Internal Medicine
PROC: XW033E5 Introduction of Remdesivir Anti-infective into Peripheral Vein, Percutaneous Approach, New Technology Group 5 (ICD-10-PCS; principal; 2021-03-04)
PROC: XW033F5 Introduction of Other New Technology Therapeutic Substance into Peripheral Vein, Percutaneous Approach, New Technology Group 5 (ICD-10-PCS; 2021-03-04)
DX: U07.1 COVID-19 (principal); J12.82 Pneumonia due to coronavirus disease 2019; J96.01 Acute respiratory failure with hypoxia; Z68.43 Body mass index [BMI] 50.0-59.9, adult; I10 Essential (primary) hypertension; J44.9 Chronic obstructive pulmonary disease, unspecified; E03.9 Hypothyroidism, unspecified; F41.9 Anxiety disorder, unspecified; F32.9 Major depressive disorder, single episode, unspecified; G89.29 Other chronic pain; E66.9 Obesity, unspecified
CPT/HCPCS: 36415; 71045; 71045-26; 80053; 82248; 83735; 83880; 84484; 85025; 93005; 99284; 99285-25; A9270-GY; C9113; J1650; J1885; J7050; J8540; U0002

== ENCOUNTER 2022-07-31 10:31 | Emergency (ER) | payer OTHER ==
[2022-07-31] MEDS: diphenhydrAMINE 50 MG/ML SDV IVPUSH ONE (13:48)
[2022-07-31] MEDS: Ondansetron 4 MG/2 ML SDV IVPUSH ONE (13:48)
[2022-07-31] MEDS: Sodium Chloride 0.9% 1,000 ML IV ONE (13:49)
[2022-07-31] MEDS: Metoclopramide 10 MG/2 ML SDV IV ONE (13:49)
[2022-07-31 15:33] LABS: CORONAVIRUS COVID-19 NAA NEGATIVE (NEGATIVE); INFLUENZA A NAA NEGATIVE (NEGATIVE); INFLUENZA B NAA NEGATIVE (NEGATIVE)
[2022-07-31] MEDS: Ketorolac 30 MG/ML SDV IVPUSH ONE (16:44)
[2022-07-31 16:52] VITALS: BP 145/72; PULSE 61
== END 2022-07-31 16:52 | disposition home or self-care (01) ==
LOC: MW.ED 10:31
DX: R51.9 Headache, unspecified (principal); J44.9 Chronic obstructive pulmonary disease, unspecified; I10 Essential (primary) hypertension; E66.9 Obesity, unspecified; Z68.43 Body mass index [BMI] 50.0-59.9, adult; Z79.899 Other long term (current) drug therapy; Z20.822 Contact with and (suspected) exposure to COVID-19
CPT/HCPCS: 0240U; 70450; 96361; 96374; 96375; 99284; J1200; J1885; J2405; J2765; J7030; 99283

== ENCOUNTER 2022-11-19 07:33 | Emergency (ER) | payer OTHER ==
[2022-11-19] MEDS ORDERED: Ketorolac 30 MG/ML SDV IVPUSH ONE (07:53)
[2022-11-19] MEDS ORDERED: Sodium Chloride 0.9% 1,000 ML IV ONE (07:53)
[2022-11-19] MEDS ORDERED: Ondansetron 4 MG/2 ML SDV IVPUSH ONE (07:53)
[2022-11-19] MEDS ORDERED: Sodium Chloride 0.9% 2.5 ML Syringe FLUSH PRN (07:53)
[2022-11-19] MEDS ORDERED: Sodium Chloride 0.9% 10 ML Syringe FLUSH PRN (07:53)
[2022-11-19 08:50] LABS: CARBON DIOXIDE,CO2 28.2 mmol/L (21.0-32.0); POTASSIUM,K 3.6 mmol/L (3.5-5.1)
[2022-11-19] MEDS ORDERED: Tamsulosin 0.4 MG Cap.ER PO ONE (09:11)
[2022-11-19 10:07] VITALS: BP 128/78; PULSE 87
== END 2022-11-19 10:06 | disposition home or self-care (01) ==
LOC: MW.ED 07:33
DX: N13.2 Hydronephrosis with renal and ureteral calculous obstruction (principal); I10 Essential (primary) hypertension; J44.9 Chronic obstructive pulmonary disease, unspecified; E03.9 Hypothyroidism, unspecified; E66.9 Obesity, unspecified; Z68.43 Body mass index [BMI] 50.0-59.9, adult; Z79.899 Other long term (current) drug therapy
CPT/HCPCS: 36415; 74176; 80053; 81001; 83690; 85025; 96361; 96374; 96375; 99284; A9270; J1885; J2405; J3490; J7030

== ENCOUNTER 2023-08-03 21:06 | Emergency (ER) | payer SELFPAY ==
[2023-08-03 21:26] VITALS: BP 163/79; PULSE 61
[2023-08-03] MEDS ORDERED: HYDROmorphone 1 MG/ML Syringe IM ONE (21:33)
== END 2023-08-03 21:45 | disposition home or self-care (01) ==
LOC: MW.ED 21:06
DX: M25.561 Pain in right knee (principal); M25.562 Pain in left knee; E03.9 Hypothyroidism, unspecified; E66.9 Obesity, unspecified; Z79.899 Other long term (current) drug therapy; Z68.42 Body mass index [BMI] 45.0-49.9, adult
CPT/HCPCS: 96372; 99283; J1170; 99282

== ENCOUNTER 2023-08-04 09:05 | Emergency (ER) | payer SELFPAY ==
[2023-08-04] MEDS ORDERED: Naloxone 0.4 MG/ML SDV IVPUSH PRN (09:50)
[2023-08-04] MEDS ORDERED: HYDROmorphone 1 MG/ML Syringe IM ONE (09:50)
[2023-08-04] MEDS ORDERED: Gabapentin 300 MG Cap PO ONE (09:50)
[2023-08-04 09:57] VITALS: BP 154/69; PULSE 64
== END 2023-08-04 10:19 | disposition home or self-care (01) ==
LOC: MW.ED 09:05
DX: G89.29 Other chronic pain (principal); M25.561 Pain in right knee; M25.562 Pain in left knee; I10 Essential (primary) hypertension; J44.9 Chronic obstructive pulmonary disease, unspecified; E03.9 Hypothyroidism, unspecified; E66.9 Obesity, unspecified; Z68.42 Body mass index [BMI] 45.0-49.9, adult; Z79.899 Other long term (current) drug therapy; Z88.8 Allergy status to other drugs, medicaments and biological substances
CPT/HCPCS: 96372; 99283; A9270; J1170; 99284

== ENCOUNTER 2024-08-19 08:01 | Emergency (ER) | payer OTHER ==
[2024-08-19 08:17] VITALS: BP 166/88; PULSE 68
[2024-08-19 08:22] LABS: APPEARANCE,URINE CLEAR; BILIRUBIN,URINE NEGATIVE (NEGATIVE); COLOR,URINE YELLOW; GLUCOSE,URINE NEGATIVE (NEGATIVE); KETONES,URINE NEGATIVE (NEGATIVE); LEUKOCYTE ESTERASE,URINE NEGATIVE (NEGATIVE); NITRITE,URINE NEGATIVE (NEGATIVE); OCCULT BLOOD,URINE NEGATIVE (NEGATIVE); PH,URINE 5.5 (5.0-8.0); PROTEIN,URINE NEGATIVE (NEGATIVE)
[2024-08-19] MEDS: fentaNYL 50 MCG/ML SDV IM ONE (09:53)
[2024-08-19] MEDS: Ketorolac 30 MG/ML SDV IM ONE (09:53)
[2024-08-19 10:15] LABS: BASOPHILS PERCENT AUTO 1.3 % (0.0-1.0); EOSINOPHILS ABSOLUTE AUTO 0.16 K/uL (0.00-0.45); EOSINOPHILS PERCENT AUTO 2.1 % (0.0-6.0); HEMOGLOBIN 13.5 g/dL (12.0-16.0); IMMATURE GRAN ABSOLUTE AUTO 0.01 K/uL (0.00-0.05); IMMATURE GRAN PERCENT AUTO 0.1 % (0.0-0.4); LYMPHOCYTES PERCENT AUTO 31.2 % (24.0-44.0); MEAN CORPUSCULAR HEMOGLOBIN 29.7 pg (28.0-32.0); MEAN CORPUSCULAR HGB CONC 33.8 g/dL (32.0-36.0); MEAN CORPUSCULAR VOLUME 88.1 fL (83.0-99.0); MEAN PLATELET VOLUME 10.1 fL (9.4-12.3); MONOCYTES ABSOLUTE AUTO 0.51 K/uL (0.00-0.80); MONOCYTES PERCENT AUTO 6.6 % (0.0-8.0); NEUTROPHILS ABSOLUTE AUTO 4.52 K/uL (1.80-7.70); NEUTROPHILS PERCENT AUTO 58.7 % (41.0-71.0); PLATELET COUNT,PLT 189 K/uL (150-400); RED BLOOD CELL COUNT 4.54 M/uL (4.10-5.30)
[2024-08-19 10:43] LABS: ALBUMIN 3.4 g/dL (3.4-5.0); BILIRUBIN TOTAL 0.3 mg/dL (0.2-1.0); CALCIUM 9.4 mg/dL (8.5-10.1); CARBON DIOXIDE,CO2 29.2 mmol/L (21.0-32.0); EST CRCL DRUG DOSING (CG) 47.63 mL/min; POTASSIUM,K 3.8 mmol/L (3.5-5.1); PROTEIN TOTAL,TP 6.9 g/dL (6.4-8.2)
== END 2024-08-19 12:53 | disposition home or self-care (01) ==
LOC: MW.ED 08:01
DX: B02.29 Other postherpetic nervous system involvement (principal); R10.32 Left lower quadrant pain; I10 Essential (primary) hypertension; J44.9 Chronic obstructive pulmonary disease, unspecified; M19.90 Unspecified osteoarthritis, unspecified site; E11.9 Type 2 diabetes mellitus without complications; E03.9 Hypothyroidism, unspecified; E66.9 Obesity, unspecified; Z68.41 Body mass index [BMI] 40.0-44.9, adult; Z79.84 Long term (current) use of oral hypoglycemic drugs; Z79.899 Other long term (current) drug therapy; Z79.82 Long term (current) use of aspirin; Z88.8 Allergy status to other drugs, medicaments and biological substances; Z75.8 Other problems related to medical facilities and other health care
CPT/HCPCS: 36415; 74176; 80053; 81003; 83690; 85025; 96372; 99284; J1885; J3010

== ENCOUNTER 2025-01-11 19:41 | Emergency (ER) | payer SELFPAY ==
[2025-01-11] MEDS: Sodium Chloride 0.9% 1,000 ML IV ONE (20:58)
[2025-01-11] MEDS: fentaNYL 50 MCG/ML SDV IVPUSH ONE (20:58)
[2025-01-11] MEDS: Ondansetron 4 MG/2 ML SDV IVPUSH ONE (20:58)
[2025-01-11 21:09] LABS: BASOPHILS ABSOLUTE AUTO 0.11 K/uL (0.00-0.20); BASOPHILS PERCENT AUTO 1.4 % (0.0-1.0); EOSINOPHILS ABSOLUTE AUTO 0.15 K/uL (0.00-0.45); HEMATOCRIT 41.6 % (37.0-47.0); HEMOGLOBIN 14.2 g/dL (12.0-16.0); IMMATURE GRAN ABSOLUTE AUTO 0.01 K/uL (0.00-0.05); IMMATURE GRAN PERCENT AUTO 0.1 % (0.0-0.4); LYMPHOCYTES PERCENT AUTO 23.6 % (24.0-44.0); MEAN CORPUSCULAR HEMOGLOBIN 30.5 pg (28.0-32.0); MEAN CORPUSCULAR HGB CONC 34.1 g/dL (32.0-36.0); MEAN CORPUSCULAR VOLUME 89.3 fL (83.0-99.0); MEAN PLATELET VOLUME 10.3 fL (9.4-12.3); MONOCYTES ABSOLUTE AUTO 0.47 K/uL (0.00-0.80); MONOCYTES PERCENT AUTO 6.2 % (0.0-8.0); NEUTROPHILS PERCENT AUTO 66.7 % (41.0-71.0); PLATELET COUNT,PLT 197 K/uL (150-400); RED BLOOD CELL COUNT 4.66 M/uL (4.10-5.30); WHITE BLOOD CELL COUNT,WBC 7.64 K/uL (3.9-11.3)
[2025-01-11 21:36] LABS: A/G RATIO 1.1 (0.9-1.6); ALBUMIN 3.7 g/dL (3.4-5.0); BILIRUBIN TOTAL 0.3 mg/dL (0.2-1.0); CALCIUM 9.8 mg/dL (8.5-10.1); CARBON DIOXIDE,CO2 31.5 mmol/L (21.0-32.0); CREATININE 1.1 mg/dL (0.6-1.0); EST CRCL DRUG DOSING (CG) 52.81 mL/min; POTASSIUM,K 4.1 mmol/L (3.5-5.1)
[2025-01-11] MEDS: Iopamidol 755 MG/ML 500 ML Multipack Bottle IVPUSH ONE (21:58)
[2025-01-11] MEDS: Pantoprazole 40 MG in Sodium Chloride 0.9% 10 ML IVPUSH ONE (22:13)
[2025-01-11 22:37] LABS: APPEARANCE,URINE CLEAR; BILIRUBIN,URINE NEGATIVE (NEGATIVE); COLOR,URINE YELLOW; GLUCOSE,URINE NEGATIVE (NEGATIVE); KETONES,URINE NEGATIVE (NEGATIVE); LEUKOCYTE ESTERASE,URINE NEGATIVE (NEGATIVE); NITRITE,URINE NEGATIVE (NEGATIVE); OCCULT BLOOD,URINE NEGATIVE (NEGATIVE); PROTEIN,URINE NEGATIVE (NEGATIVE); UROBILINOGEN,URINE 0.2 EU/dL (<2.0)
[2025-01-11 22:45] LABS: BACTERIA,URINE RARE (NEGATIVE); EPITHELIAL CELLS,URINE FEW (NONE-FEW); RBC,URINE 0-1 (0-2/HPF); WBC,URINE NONE SEEN (0-5/HPF)
[2025-01-12] MEDS: Hyoscyamine 0.125 MG Tab.SL SL ONE (00:30)
[2025-01-12 00:31] VITALS: BP 124/73; PULSE 69
== END 2025-01-12 00:45 | disposition home or self-care (01) ==
LOC: MW.ED 19:41
DX: K52.9 Noninfective gastroenteritis and colitis, unspecified (principal); I10 Essential (primary) hypertension; J44.9 Chronic obstructive pulmonary disease, unspecified; M19.90 Unspecified osteoarthritis, unspecified site; E11.9 Type 2 diabetes mellitus without complications; E03.9 Hypothyroidism, unspecified; E66.9 Obesity, unspecified; Z68.35 Body mass index [BMI] 35.0-35.9, adult; Z88.8 Allergy status to other drugs, medicaments and biological substances; Z79.82 Long term (current) use of aspirin; Z79.84 Long term (current) use of oral hypoglycemic drugs; Z79.890 Hormone replacement therapy; Z79.899 Other long term (current) drug therapy; Z75.8 Other problems related to medical facilities and other health care
CPT/HCPCS: 36415; 71046; 74177; 80053; 81001; 83690; 84484; 85025; 96361; 96374; 96375; 99284; A9270; J2405; J2470; J3010; J7030; Q9967